=== PATIENT | female | born 1955 | race Two or more races ===

== ENCOUNTER 2017-09-13 13:38 | Inpatient (IN) | payer BC ==
[2017-09-13 14:54] LABS: ABS Basophils 0.1 10^3/ul (0-0.2); ABS Eosinophils 0.1 10^3/ul (0-0.6); ABS Lymphocytes 1.1 10^3/ul (1.0-4.8); ABS Monocytes 0.6 10^3/ul (0-0.8); ABS Neutrophils 6.5 10^3/ul (1.5-7.7); ABS Nucleated RBC 0 10^3/ul; Eosinophil % 1.1 % (0-6); Hematocrit 41 % (35-47); Hemoglobin 13.9 g/dl (12.0-16.0); Lymphocyte % 13.6 % (25-47); Mean Corpuscular HGB Conc 34 g/dl (31-36); Mean Corpuscular Hemoglobin 29 pg (27-31); Mean Corpuscular Volume 84 fL (80-97); Mean Platelet Volume 6.8 um3 (7.4-10.4); Nucleated Red Blood Cells % 0; Platelet Count 272 10^3/ul (150-450); Red Blood Count 4.88 10^6/ul (4.0-5.4); Red Cell Distribution Width 13 % (10.5-15); White Blood Count 8.5 10^3/ul (3.5-10.8)
[2017-09-13] MEDS ORDERED: NS 0.9% 1000 ML* 1,000 ML IV ONE (14:59)
[2017-09-13 15:26] LABS: EGFR Non-African American 61.5 (>60)
[2017-09-13] MEDS ORDERED: Potassium Chlor TAB* 20 MEQ TAB.ER PO ONE (15:28)
[2017-09-13] MEDS ORDERED: KCL 10 MEQ/50 ML IVPREMIX* 10 MEQ/50 ML BAG IV ONE (15:52)
--- NOTE | 2017-09-13 16:14 | RAD ---
Indication: Altered mental status. Comparison: No relevant prior exams available on the [facility] [place] comparison. Technique: Upright AP 1550 hours Report: Minimal bibasilar linear atelectasis likely reflecting suboptimal inspiration given domed appearance of the hemidiaphragms. No pulmonary infiltrate, focal pulmonary lesion, pleural effusion, or pneumothorax. The heart, pulmonary vasculature, and mediastinal contours are unremarkable.
[2017-09-13 16:32] LABS: INR 0.96 (0.77-1.02)
--- NOTE | 2017-09-13 16:46 | RAD ---
Indication: Confusion, altered mental status. CT of the brain was performed without IV contrast. Ventricular structures are midline. No midline shift is noted. The extra-axial spaces are unremarkable. There is no evidence of intracranial mass or hemorrhage. No other high or low density lesions are identified. Mastoid air cells and paranasal sinuses are unremarkable. IMPRESSION: No intracranial mass or hemorrhage is noted. Mastoid air cells and paranasal sinuses are unremarkable.
--- NOTE | 2017-09-13 17:43 | ED ---
Geno Dwyer Julia, scribed for Elisa Turner MD on 09/13/17 at 1446 . Substance Abuse/Use - HPI Summary HPI Summary: This patient is a 62 year old F presenting to [facility] accompanied by her from Dr. Vasu Roy office (psychiatrist in [place]) with altered mental status. Pt has been attempting withdrawal from Lorazepam and Narcotics for the past three days. Pt was referred to Dr. Vasu Huerta by her PCP Dr. Amy Quijano. Pt has been seen at the pain clinic at [facility]. She has been taking opioids and benzodiazepines for many years according to Dr. Roy chart from . states she was unstable and up most of last night hallucinating and talking to people who are not there. Pt is speaking Korean in the room. states that she speaks Slovenian well, but hasnt been speaking it while confused. Dr. Vasu Roy HPI from 09/01/17 reads: Ms. Schilling has been taking opioids and benzodiazepines for many years. These have been prescribed to her by various doctors for various ailments including Hodgkins lymphoma (dx in 2004), knee surgery (broken femur), and shingles. She has taken oxycodone/ acetaminophen as well as oxycodone in the past, as her tolerance for opioids has increased over the years. She is not currently taking oxycodone, and has not for the past two months. Instead she is taking Belbuca 900mg BID. HPI is limited due to level 5 caveat. - History Of Current Complaint Chief Complaint: EDDetoxRequest Stated Complaint: DETOX Time Seen by Provider: 09/13/17 14:09 Hx Obtained From: Family/Electronic Prepress System Operator - , Medical Records - Dr. Vasu Huerta Hx From Patient Unobtainable Due To: Altered Mental Status Onset/Duration of Drug/ETOH Abuse: Years - prescribed benzodiazepine and narcotics Ingestion History: Type/Name Of Drug - prescribed benzodiazepines and opioids Timing Of Abuse: Recent Cessation For A Period Of - three days Severity Initially: Moderate Severity Currently: Severe Character: Lethargic Aggravating Factor(s): Nothing Alleviating Factor(s): Nothing Associated Signs And Symptoms: Hallucinating, Altered Mental Status, Other: - speaking teller tongue Korean - Allergies/Home Medications Allergies/Adverse Reactions: Allergies Allergy/AdvReac Type Severity Reaction Status Date / Time Penicillins Allergy Severe Anaphylatic Verified 09/13/17 13:47 Shock levofloxacin [From Levaquin] Allergy Dizziness Verified 09/13/17 13:47 Home Medications: Home Medications Buprenorphine HCl [Belbuca] 900 mcg BUCCAL BID 09/13/17 [History Confirmed 09/13] Citalopram TAB* [CeleXA TAB*] 10 mg PO DAILY 09/13/17 [History Confirmed ] Gabapentin CAP(*) [Neurontin 400 mg CAP(*)] 800 mg PO TID 09/13/17 [History Confirmed 09/13/17] Hyoscyamine TAB* [Anaspaz 0.125 MG TAB*] 0.125 mg PO Q1HR PRN MDD 6 tabs [History Confirmed 09/13/17] Losartan TAB* [Cozaar TAB*] 100 mg PO DAILY 09/13/17 [History Confirmed 09/13/17 ] Multivitamins/Minerals TAB* [Theragran/minerals TAB*] 1 tab PO DAILY 09/13/17 [ History Confirmed 09/13/17] Naltrexone TAB* 50 mg PO DAILY 09/13/17 [History Confirmed 09/13/17] OLANzapine TAB* [Zyprexa 10 MG TAB*] 10 mg PO QPM 09/13/17 [History Confirmed ] traZODone TAB* [Desyrel TAB*] 100 - 300 mg PO BEDTIME PRN 09/13/17 [History Confirmed 09/13/17] PMH/Surg Hx/FS Hx/Imm Hx Endocrine/Hematology History: Reports: Hx Diabetes Cardiovascular History: Reports: Hx Hypercholesterolemia, Hx Hypertension Denies: Hx Pacemaker/ICD History: Denies: Hx Renal Disease Musculoskeletal History: Reports: Hx Back Problems - scoliosis, DDD, central canal stenosis, OA, Sensory History: Reports: Hx Contacts or Glasses Denies: Hx Hearing Aid Opthamlomology History: Reports: Hx Contacts or Glasses Neurological History: Reports: Hx Peripheral Neuropathy Psychiatric History: Reports: Hx Anxiety, Hx Depression Denies: Hx Panic Disorder - Cancer History Cancer Type, Location and Year: LYMPHOMA - NONHODGKIN'S Hx Chemotherapy: Yes Hx Radiation Therapy: No - Surgical History Surgery Procedure, Year, and Place: Lt FEMUR W/ ROSEY. Lt KNEE - REPLACEMENT Infectious Disease History: No Infectious Disease History: Denies: Traveled Outside the [place] in Last 30 Days - Family History Known Family History: Positive: Other - Etoh abuse Family History: FMHx is limited. Both parents as a result of trauma. - Social History Lives: With Family Alcohol Use: None Substance Use Type: Reports: Prescribed Smoking Status (MU): Never Smoked Tobacco Review of Systems Positive: Fatigue. Negative: Fever ENT: Negative Positive: Other Respiratory: Negative Gastrointestinal: Negative Positive: no symptoms reported Neurological: Other - altered mental status Positive: Other - hallucinating All Other Systems Reviewed And Are Negative: No - Comments Additional Review of Systems Comments: ROS is limited. Pt is level 5 caveat. Physical Exam - Summary Physical Exam Summary: Appearance: Ill-appearing, no apparent pain distress, Well-nourished, pt is only oriented to name, pt is speaking Korean sometimes and Slovenian sometimes in a soft voice. Pt speaks in nonsensical sentences. Skin: Warm, color reflects adequate perfusion Head: Normal Head/Face inspection, atraumatic Eyes: Conjunctiva clear, pupils are 2mm and reactive, EOMI ENT: dry mucous membranes, dry pharynx Neck: Supple, no nodes, no JVD. Respiratory: Lungs clear, Normal breath sounds, no respiratory distress Cardio: Regular rhythm, tachycardic rate, No murmur, pulses normal, brisk capillary refill Abdomen: soft, nontender, no masses Bowel sounds: present Musculoskeletal: Strength Intact/ ROM intact. No calf tenderness. No edema. Psychological: Normal Neuro: Alert and oriented x1, GCS 14, muscle tone normal, no focal deficit, moving all extremities well, sensation intact Triage Information Reviewed: Yes Vital Signs On Initial Exam: Initial Vitals Temp Pulse Resp BP Pulse Ox 98.4 F 124 18 159/66 100 09/13/17 13:44 09/13/17 13:44 09/13/17 13:44 09/13/17 13:44 09/13/17 13:44 Vital Signs Reviewed: Yes Diagnostics - Vital Signs Vital Signs Temp Pulse Resp BP Pulse Ox 09/13/17 13:44 98.4 F 124 18 159/66 100 - Laboratory Lab Results: Lab Results 09/13/17 09/13/17 09/13/17 Range/Units 14:45 14:45 15:34 WBC 8.5 (3.5-10.8) 10^3/ul RBC 4.88 (4.0-5.4) 10^6/ul Hgb 13.9 (12.0-16.0) g/dl Hct 41 (35-47) % MCV 84 (80-97) fL MCH 29 (27-31) pg MCHC 34 (31-36) g/dl RDW 13 (10.5-15) % Plt Count 272 (150-450) 10^3/ul MPV 6.8 L (7.4-10.4) um3 Neut % (Auto) 77.0 (38-83) % Lymph % (Auto) 13.6 L (25-47) % Angelina % (Auto) 7.4 H (0-7) % Eos % (Auto) 1.1 (0-6) % Baso % (Auto) 0.9 (0-2) % Absolute Neuts (auto) 6.5 (1.5-7.7) 10^3/ul Absolute Lymphs (auto) 1.1 (1.0-4.8) 10^3/ul Absolute Monos (auto) 0.6 (0-0.8) 10^3/ul Absolute Eos (auto) 0.1 (0-0.6) 10^3/ul Absolute Basos (auto) 0.1 (0-0.2) 10^3/ul Absolute Nucleated RBC 0 10^3/ul Nucleated RBC % 0 Sodium 134 L (139-145) mmol/L Potassium 3.2 L (3.5-5.0) mmol/L Chloride 94 L (101-111) mmol/L Carbon Dioxide 26 (22-32) mmol/L Anion Gap 14 H (2-11) mmol/L BUN 7 (6-24) mg/dL Creatinine 0.92 (0.51-0.95) mg/dL Est GFR ( Amer) 79.0 (>60) Est GFR (Non-Af Amer) 61.5 (>60) BUN/Creatinine Ratio 7.6 L (8-20) Glucose 237 H (70-100) mg/dL Lactic Acid 3.4 H* (0.5-2.0) mmol/L Calcium 10.2 (8.6-10.3) mg/dL Magnesium Total Bilirubin 0.70 (0.2-1.0) mg/dL AST 63 H (13-39) U/L ALT 52 (7-52) U/L Alkaline Phosphatase 47 (34-104) U/L Total Creatine Kinase 2187 H (10-223) U/L Troponin I (<0.04) ng/mL Total Protein 7.3 (6.4-8.9) g/dL Albumin 4.7 (3.2-5.2) g/dL Globulin 2.6 (2-4) g/dL Albumin/Globulin Ratio 1.8 (1-3) TSH 0.70 (0.34-5.60) mcIU/mL Salicylates < 2.50 (<30) mg/dL Acetaminophen < 15 mcg/mL Serum Alcohol < 10 (<10) mg/dL 09/13/17 Range/Units 15:34 WBC (3.5-10.8) 10^3/ul RBC (4.0-5.4) 10^6/ul Hgb (12.0-16.0) g/dl Hct (35-47) % MCV (80-97) fL MCH (27-31) pg MCHC (31-36) g/dl RDW (10.5-15) % Plt Count (150-450) 10^3/ul MPV (7.4-10.4) um3 Neut % (Auto) (38-83) % Lymph % (Auto) (25-47) % Angelina % (Auto) (0-7) % Eos % (Auto) (0-6) % Baso % (Auto) (0-2) % Absolute Neuts (auto) (1.5-7.7) 10^3/ul Absolute Lymphs (auto) (1.0-4.8) 10^3/ul Absolute Monos (auto) (0-0.8) 10^3/ul Absolute Eos (auto) (0-0.6) 10^3/ul Absolute Basos (auto) (0-0.2) 10^3/ul Absolute Nucleated RBC 10^3/ul Nucleated RBC % Sodium (139-145) mmol/L Potassium (3.5-5.0) mmol/L Chloride (101-111) mmol/L Carbon Dioxide (22-32) mmol/L Anion Gap (2-11) mmol/L BUN (6-24) mg/dL Creatinine (0.51-0.95) mg/dL Est GFR ( Amer) (>60) Est GFR (Non-Af Amer) (>60) BUN/Creatinine Ratio (8-20) Glucose (70-100) mg/dL Lactic Acid (0.5-2.0) mmol/L Calcium (8.6-10.3) mg/dL Magnesium Pending Total Bilirubin (0.2-1.0) mg/dL AST (13-39) U/L ALT (7-52) U/L Alkaline Phosphatase (34-104) U/L Total Creatine Kinase (10-223) U/L Troponin I 0.01 (<0.04) ng/mL Total Protein (6.4-8.9) g/dL Albumin (3.2-5.2) g/dL Globulin (2-4) g/dL Albumin/Globulin Ratio (1-3) TSH (0.34-5.60) mcIU/mL Salicylates (<30) mg/dL Acetaminophen mcg/mL Serum Alcohol (<10) mg/dL Result Diagrams: 09/13/17 14:45 09/13/17 14:45 Lab Statement: Any lab studies that have been ordered have been reviewed, and results considered in the medical decision making process. - EKG 1448 Cardiac Rate: NL EKG Rhythm: Sinus Rhythm - at [address] Segment: Non-Specific Ectopy: None EKG Interpretation: nml AVIVCT, nml QTc, nml axis, not STEMI EKG Comparison: Other - no prior EKG Re-Evaluation - Re-Evaluation First Eval Re-Evaluation Time: 16:30 Change: Improved - Pt is more alert. Returned from CT. Knows her name, where she is, what year and what month it is. Course/Dx - Course Course Of Treatment: aware of lactic acid 3.4 at 1600. IV fluids infusing wide open to treat rhabdomyolysis. Hypokalemia being treated with oral and IV replacement. Pt is admitted for further evaluation and treatment. - Diagnoses Differential Diagnosis/HQI/PQRI: Positive: Alcohol Withdrawal, Delirium Tremens , Drug Abuse, Drug Withdrawal, Metabolic Disorder Provider Diagnoses: Altered mental status, Rhabdomyolysis, Lactic acidosis - Physician Notifications Discussed Care Of Patient With: Jade Bartholomew Time Discussed With Above Provider: 18:30 Instructed by Provider To: Admit As Inpatient - Critical Care Time Critical Care Time: 30-74 min - 30 minutes Discharge - Sign-Out/Discharge Documenting (check all that apply): Discharge/Admit/Transfer - admit - Discharge Plan Condition: Guarded Disposition: ADMITTED TO [facility] - Billing Disposition and Condition Condition: GUARDED Disposition: [facility] The documentation as recorded by the Geno newman Julia accurately reflects the service I personally performed and the decisions made by Johnny montgomery Barbara J, MD.
[2017-09-13 18:04] LABS: Urine Appearance Clear; Urine Blood 2+ (Negative); Urine Color Straw; Urine Ketones Negative (Negative); Urine Protein 1+(30 mg/dL) (Negative); Urine Specific Gravity 1.004 (1.010-1.030); Urine Urobilinogen Negative (Negative)
[2017-09-13] MEDS ORDERED: Acetaminophen TAB* 325 MG PO PRN (18:38)
[2017-09-13] MEDS ORDERED: Hyoscyamine TAB* 0.125 MG PO PRN (18:42)
[2017-09-13] MEDS ORDERED: traZODone TAB* 100 MG PO PRN (18:42)
[2017-09-13] MEDS ORDERED: Dextrose 50% Syringe 50 ML* 25 GM/50 ML SYRINGE IV PUSH PRN (18:45)
[2017-09-13] MEDS ORDERED: Magnesium Sulfate 2 GM IV* 2 GM/50 ML BAG IVPB ONE (18:46)
[2017-09-13] MEDS ORDERED: Potassium Chloride LIQUID* 20 MEQ PACKET PO ONE (18:47)
[2017-09-13] MEDS: Losartan TAB* 25 MG PO SCH (20:55)
[2017-09-13] MEDS: Gabapentin CAP(*) 400 MG PO SCH (20:56)
[2017-09-13] MEDS: Docusate CAP* 100 MG PO SCH (20:56)
[2017-09-13] MEDS: Insulin LISPRO* 1 UNITS UNIT SUBCUT SCH (21:00)
[2017-09-13] MEDS ORDERED: LORazepam TAB(*) 1 MG PO SCH (21:00)
[2017-09-13] MEDS ORDERED: cloNIDine TAB* 0.1 MG PO SCH (21:00)
[2017-09-13] MEDS: Heparin VIAL(*) 5000 UNITS/ML VIAL (FIVE THOUSAND) SUBCUT SCH (21:02)
--- NOTE | 2017-09-13 21:07 | HP ---
CC: Dr. Amy Quijano; Dr. Kat; Dr. Jamison, Pain Management; Dr. Vasu Huerta, psychiatrist* HISTORY AND PHYSICAL: DATE OF ADMISSION: 09/13/17 PRIMARY CARE PROVIDER: Dr. Amy Quijano. CHIEF COMPLAINT: Altered mental status. HISTORY OF PRESENT ILLNESS: Mrs. Schilling is a 62-year-old female with history of spinal stenosis and chronic benzodiazepines and narcotics, who is on a benzodiazepine taper as per Dr. Vasu Huerta. Apparently, she took her narcotics 3 days ago and she is on tapering dose of Ativan. Today, she was confused and speaking "nonsensically" in the emergency department. She was noted to have mild rhabdomyolysis. By the time I saw the patient, she is actually alert and oriented. She still has problems with verbal communication mostly likely due to what appears to be dehydration and dry mouth. Sometimes, her speech is somewhat and her understanding of everything is somewhat tangential. Patient is going to be admitted with a diagnosis of rhabdomyolysis and benzodiazepine withdrawal. PAST MEDICAL HISTORY: 1. Spinal stenosis. 2. History of gastroesophageal reflux disease. 3. Hypertension. 4. Asthma. 5. Anxiety. 6. History of non-Hodgkin's lymphoma, status post chemo and radiation. 7. History of chronic pain and history of addiction. 8. Status post left knee replacement and left femur ORIF. 9. Status post cholecystectomy. HOME MEDICATIONS: Include: 1. Multivitamin 1 tablet daily. 2. Metformin 1000 mg b.i.d. 3. Losartan 100 mg daily. 4. Gabapentin 800 mg 3 times a day. 5. Belbuca 900 mcg buccal b.i.d. Patient took the last dose 3 days ago. 6. Crestor 10 mg daily. 7. Celexa 10 mg daily. 8. Ativan 2 mg b.i.d. p.r.n., last dose 24 hours ago. 9. Naltrexone 50 mg daily. 10. Anaspaz 0.125 mg p.o. every 1 hour p.r.n. 11. Zyprexa 10 mg daily. 12. Trazodone 100 to 300 mg at bedtime p.r.n. ALLERGIES: PENICILLINS and LEVOFLOXACIN; PENICILLINS cause anaphylactic shock and LEVOFLOXACIN causes dizziness. FAMILY HISTORY: Grossly unknown. Patient's both parents of trauma. SOCIAL HISTORY: Patient denies any tobacco, alcohol, or drug use. She lives with her , who is her surrogate. REVIEW OF SYSTEMS: Please see history of present illness. Patient stated that she had been not feeling like eating or drinking for the past 48 hours. She apparently was confused during her initial presentation in the emergency department. She denies any fevers. She denies any seizure activity. All the remaining systems were reviewed with the patient, who is rather a poor historian and were otherwise negative. PHYSICAL EXAMINATION GENERAL: The patient is a very pleasant 62-year-old female, who is in no acute distress. She speaks with an accent originally she is from [facility] [place] [facility] from which country she immigrated to [facility] approximately 40 years ago as she stated. Patient is in no acute distress. Occasionally tangential and poor historian, but otherwise oriented x3. VITAL SIGNS: Blood pressure of 187/84, heart rate of 85 and regular, respiratory rate 18, oxygen saturation 100% on room air, temperature 98.4. HEENT: Head: Atraumatic and normocephalic. Eyes: Pupils are equal, reactive to light and accommodation. Oropharynx clear. Mucosa dry. NECK: Supple. No JVD. No bruits bilaterally. RESPIRATORY: Clear to auscultation bilaterally. CARDIOVASCULAR: Regular rate and rhythm, no murmur. ABDOMEN: Soft, nontender. Bowel sounds are present in all 4 quadrants. EXTREMITIES: There is no edema. Pulses +2 bilaterally. No clubbing or cyanosis. NEUROLOGIC: Speech is clear. Cranial nerves II through XII grossly intact. Motor strength is 5/5 bilaterally. Patient has fine tremor in bilateral upper extremities. PSYCHIATRIC: Somewhat tangential speech. Appears mildly anxious and no evidence of depression. DIAGNOSTIC STUDIES/LABORATORY DATA: Showed sodium of 134, potassium 3.2, chloride 94, carbon dioxide 26, BUN is 7, creatinine 0.92. Liver function tests , slight elevation in the AST of 63, otherwise unremarkable. Magnesium was 1.6. Glucose of 237. Lactic acid of 3.4. TSH of 0.7. CBC: White blood cell count of 8.5, hemoglobin of 13.9, hematocrit of 41, and platelets 172. ABG showed pH of 7.51, pCO2 of 32, pO2 of 81, bicarb of 27. Ammonia level was 34. Urinalysis showed blood +2, absent bacteria, white blood cells. Urine tox screen negative. Portable chest x-ray, impression: "Minimal bibasilar linear atelectasis likely reflecting suboptimal respiration given the domed appearance of hemidiaphragms. No pulmonary infiltrate, focal pulmonary lesions, pleural effusion, or pneumothorax. The heart, pulmonary vasculature and mediastinal contours are unremarkable." Brain CT, impression: "No intracranial mass or hemorrhage is noted." Patient's EKG showed sinus rhythm with a heart rate of 85 beats per minute with likely J-point elevation in his V1 to V3. There was no another EKG in the system to compare to. ASSESSMENT AND PLAN: 1. Patient has mild rhabdomyolysis. Likely due to withdrawal, poor appetite and dehydration. Seizure is also in differential, although patient does not recall to have a seizure and that was not reported by patient's . At this point, patient is going to be placed on seizure precautions since she is going to be withdrawing from narcotics and Ativan during her hospital stay. 2. For benzodiazepine withdrawal, I am going to ask Psychiatry to see the patient in consultation. For the time being, I will place the patient back on Ativan 3 times a day at a smaller dose at 1 mg. 3. In regards to patient's history of narcotics dependence, the patient's buprenorphine is going to be held. I will place the patient on Tylenol and ibuprofen on p.r.n. basis for pain management. 4. Patient's uncontrolled hypertension likely due to benzodiazepine withdrawal. Patient is going to be placed on clonidine 3 times a day. Her losartan is also going to be restarted. 5. Her diabetes type 2 is going to be treated with insulin sliding scale. For the time being, metformin is going to be held. 6. Patient's hypokalemia and hypomagnesemia is going to be replaced orally and IV. We will check her twice in the morning. 7. Patient's code status is full and her surrogate is her . TIME SPENT: Approximately 65 minutes was spent on admission of this patient, more than half that time was spent [id number] with the patient during the interview and physical exam. [id number]/[facility] #: [id number] [facility]ITAL[facility]
--- NOTE | 2017-09-14 00:23 | PN ---
Progress Note - Progress Note Date of Service: 09/14/17 Note: Nursing called reporting lethargy. Upon arrival, Mrs Schilling would not open her eyes to voice, but with a rather mild sternal pressure she would slowly open her eyes and answer questions appropriately. She moved all 4 extremities equally , had clear speech, PERRLA/EOMI. She returned quickly to sleep once pressure was relieved. She has intact crude touch globally and CT brain performed earlier was negative. MAR does not indicate and new administration of sedating meds. Nursing advised to do neurochecks Q1H x4, then Q2 and call for any changes.
[2017-09-14] MEDS ORDERED: NS 0.9% 1000 ML* 1,000 ML IV ONE (00:55)
[2017-09-14] MEDS: NS 0.9% 1000 ML* 1,000 ML IV SCH ×3 (00:55→19:33)
--- NOTE | 2017-09-14 01:08 | PN ---
Progress Note - Progress Note Date of Service: 09/14/17 Note: Nursing calls reporting progressive lethargy & hypotension w/ systolic in the 70s with IVFs running wide open. Upon arrival, Mrs Schilling is significantly less responsive, now only moaning to moderate sternal rub. saO2 is >90. Ordered 1L NS bolus, check CBC/CMP/lactic/ammonia/ABG, recheck CT brain WO, & ECG. Of note , glucose at time of last evaluation was 127.
[2017-09-14 03:36] LABS: ABS Basophils 0 10^3/ul (0-0.2); ABS Eosinophils 0.3 10^3/ul (0-0.6); ABS Lymphocytes 2.5 10^3/ul (1.0-4.8); ABS Monocytes 0.9 10^3/ul (0-0.8); ABS Neutrophils 3.2 10^3/ul (1.5-7.7); ABS Nucleated RBC 0 10^3/ul; Hematocrit 38 % (35-47); Hemoglobin 12.2 g/dl (12.0-16.0); Lymphocyte % 36.3 % (25-47); Mean Corpuscular HGB Conc 32 g/dl (31-36); Mean Corpuscular Hemoglobin 29 pg (27-31); Mean Corpuscular Volume 88 fL (80-97); Mean Platelet Volume 7.2 um3 (7.4-10.4); Nucleated Red Blood Cells % 0.2; Platelet Count 167 10^3/ul (150-450); Red Blood Count 4.28 10^6/ul (4.0-5.4); Red Cell Distribution Width 13 % (10.5-15); White Blood Count 6.9 10^3/ul (3.5-10.8)
[2017-09-14] MEDS: Heparin VIAL(*) 5000 UNITS/ML VIAL (FIVE THOUSAND) SUBCUT SCH ×3 (05:23→20:57)
--- NOTE | 2017-09-14 05:43 | PN ---
Progress Note - Progress Note Date of Service: 09/14/17 Note: Re-evaluated patient. Blood pressure improved after bolus. Remains hypo- responsive. Will open eyes to sternal rub, does not answer questions, and then throws her head back onto her pillow and will not respond. Labs are unrevealing , ammonia still pending. CT brain WO negative. ECG benign. Continue to monitor closely. Prior psychiatric history?
[2017-09-14 06:12] LABS: ABS Eosinophils 0.5 10^3/ul (0-0.6); ABS Lymphocytes 2.7 10^3/ul (1.0-4.8); ABS Monocytes 0.9 10^3/ul (0-0.8); ABS Neutrophils 3.9 10^3/ul (1.5-7.7); Hematocrit 39 % (35-47); Hemoglobin 12.5 g/dl (12.0-16.0); Mean Corpuscular HGB Conc 32 g/dl (31-36); Mean Corpuscular Hemoglobin 28 pg (27-31); Mean Corpuscular Volume 89 fL (80-97); Mean Platelet Volume 6.5 um3 (7.4-10.4); Platelet Count 211 10^3/ul (150-450); Red Cell Distribution Width 13 % (10.5-15)
[2017-09-14 06:13] LABS: ABS Basophils 0.1 10^3/ul (0-0.2); ABS Nucleated RBC 0 10^3/ul; Eosinophil % 5.7 % (0-6); Lymphocyte % 33.8 % (25-47); Nucleated Red Blood Cells % 0.1
[2017-09-14 06:20] LABS: EGFR Non-African American 66.4 (>60)
[2017-09-14] MEDS: LORazepam TAB(*) 1 MG PO SCH ×3 (07:53→20:53)
[2017-09-14] MEDS: Insulin LISPRO* 1 UNITS UNIT SUBCUT SCH ×4 (08:00→20:47)
--- NOTE | 2017-09-14 08:09 | RAD ---
INDICATION: Altered mental status loss of consciousness. COMPARISON: Comparison is made with a prior CT of the brain from September 13, 2017. TECHNIQUE: Contiguous axial sections of the brain were obtained from the skull base to the vertex without contrast. FINDINGS: The ventricles, cisterns and sulci are enlarged consistent with diffuse atrophy. No significant focal abnormality or mass effect is seen. There is no evidence for hemorrhage. No significant focal osseous abnormality is seen. The visualized portion of the paranasal sinuses and mastoid air cells appear clear. IMPRESSION: NO EVIDENCE FOR GROSS ACUTE INFARCT, MASS EFFECT OR HEMORRHAGE.
[2017-09-14] MEDS: Losartan TAB* 25 MG PO SCH (09:41)
[2017-09-14] MEDS: Gabapentin CAP(*) 400 MG PO SCH ×3 (09:42→20:53)
[2017-09-14] MEDS: Docusate CAP* 100 MG PO SCH ×2 (09:42→20:53)
[2017-09-14] MEDS: Citalopram TAB* 10 MG PO SCH (09:42)
[2017-09-14] MEDS: OLANzapine TAB* 10 MG PO SCH (17:39)
--- NOTE | 2017-09-14 18:11 | PN ---
Hospitalist Progress Note Date of Service: 09/14/17 Pt seen and examined. Meds and labs reviewed. ROS: Denied GARRISON/dizziness, F/C, N/V, CP, SOB, increased cough, sputum production , abd pain, diarrhea, constipation, dysuria, myalgias, arthralgias, throat pain , and new skin lesions. The rest of the 14 point ROS are unremarkable. PHYSICAL EXAM: GEN APPEARANCE: Awake, not in acute distress HEENT: NC/AT, PERRLA, moist oral mucosa, (-) throat erythema NECK: Soft, supple, (-) cervical LAD, (-)JVD HEART: S1S2 WNL, RRR, No MRG CHEST: CTA, BL, GAE, No W/R/R ABD: Soft, ND/NT, NABS 4x Q EXT: No C/C/E SKIN: Warm to touch PSYCH: No active psychosis, hallucinations, depression, SI/HI Assess/Plan/Problems-Billing Assessment: - Patient Problems (1) Benzodiazepine abuse Current Visit: Yes Status: Acute Code(s): F13.10 - SEDATIVE, HYPNOTIC OR ANXIOLYTIC ABUSE, UNCOMPLICATED SNOMED Code(s): 198086172 Comment: --Continue current lowered BZD dose since admission --Continue watchful waiting (2) Rhabdomyolysis Current Visit: Yes Status: Acute Code(s): M62.82 - RHABDOMYOLYSIS SNOMED Code(s): 390230970 Comment: --Mild --Continue IVFs --Repeat CPK in AM Status and Disposition: DVT Proph: Continue Heparin SQ
[2017-09-14] MEDS: Ibuprofen TAB* 400 MG PO PRN (19:30)
[2017-09-14] MEDS: Albuterol 2.5 MG/3 ML NEB.SOL* (0.083%) INH PRN (19:58)
[2017-09-15] MEDS: Albuterol 2.5 MG/3 ML NEB.SOL* (0.083%) INH PRN (03:34)
[2017-09-15] MEDS: Heparin VIAL(*) 5000 UNITS/ML VIAL (FIVE THOUSAND) SUBCUT SCH ×3 (05:58→22:10)
[2017-09-15] MEDS: LORazepam TAB(*) 1 MG PO SCH ×3 (07:47→20:58)
[2017-09-15] MEDS: Gabapentin CAP(*) 400 MG PO SCH ×3 (07:49→20:58)
[2017-09-15] MEDS: Losartan TAB* 25 MG PO SCH (07:52)
[2017-09-15] MEDS: Citalopram TAB* 10 MG PO SCH (07:52)
[2017-09-15] MEDS: Docusate CAP* 100 MG PO SCH ×2 (07:52→20:58)
[2017-09-15] MEDS: Insulin LISPRO* 1 UNITS UNIT SUBCUT SCH ×4 (07:57→20:59)
[2017-09-15 08:17] LABS: ABS Basophils 0 10^3/ul (0-0.2); ABS Eosinophils 0.3 10^3/ul (0-0.6); ABS Lymphocytes 1.8 10^3/ul (1.0-4.8); ABS Monocytes 0.5 10^3/ul (0-0.8); ABS Neutrophils 2.5 10^3/ul (1.5-7.7); ABS Nucleated RBC 0 10^3/ul; Eosinophil % 5.3 % (0-6); Hematocrit 34 % (35-47); Hemoglobin 11.5 g/dl (12.0-16.0); Lymphocyte % 35.5 % (25-47); Mean Corpuscular HGB Conc 34 g/dl (31-36); Mean Corpuscular Hemoglobin 29 pg (27-31); Mean Corpuscular Volume 86 fL (80-97); Mean Platelet Volume 6.9 um3 (7.4-10.4); Nucleated Red Blood Cells % 0; Platelet Count 204 10^3/ul (150-450); Red Blood Count 3.93 10^6/ul (4.0-5.4); Red Cell Distribution Width 13 % (10.5-15); White Blood Count 5.2 10^3/ul (3.5-10.8)
[2017-09-15 08:33] LABS: EGFR Non-African American 68.3 (>60)
[2017-09-15] MEDS ORDERED: Losartan TAB* 25 MG PO SCH (11:51)
--- NOTE | 2017-09-15 12:58 | PN ---
Subjective Date of Service: 09/15/17 Interval History: No new c/o. Objective Active Medications: Acetaminophen (Tylenol Tab*) 650 mg PO Q4H PRN PRN Reason: FEVER/PAIN Last Admin: 09/15/17 00:31 Dose: 650 mg Albuterol (Ventolin 2.5 Mg/3 Ml Neb.Merari*) 2.5 mg INH Q2H PRN PRN Reason: SOB/WHEEZING Last Admin: 09/15/17 03:34 Dose: 2.5 mg Citalopram Hydrobromide (Celexa Tab*) 10 mg PO DAILY [facility] Last Admin: 09/15/17 07:52 Dose: 10 mg Dextrose (D50w Syringe 50 Ml*) 12.5 gm IV PUSH .FOR FS < 60 - SS PRN PRN Reason: FS < 60 Docusate Sodium (Colace Cap*) 100 mg PO BID [facility] Last Admin: 09/15/17 07:52 Dose: 100 mg Gabapentin (Neurontin Cap(*)) 800 mg PO TID [facility] Last Admin: 09/15/17 07:49 Dose: 800 mg Heparin Sodium (Porcine) (Heparin Vial(*)) 5,000 units SUBCUT Q8HR [facility] Last Admin: 09/15/17 05:58 Dose: 5,000 units Hyoscyamine (Anaspaz Tab*) 0.125 mg PO Q1H PRN PRN Reason: PAIN Ibuprofen (Motrin Tab*) 400 mg PO Q6H PRN PRN Reason: PAIN Last Admin: 09/14/17 19:30 Dose: 400 mg Insulin Human Lispro (Humalog*) 0 units SUBCUT ACHS [facility] PRN Reason: Protocol Last Admin: 09/15/17 12:24 Dose: 1 unit Lorazepam (Ativan Tab(*)) 1 mg PO 0900,1400,2100 [facility] Last Admin: 09/15/17 07:47 Dose: 1 mg Losartan Potassium (Cozaar Tab*) 50 mg PO DAILY [facility] Olanzapine (Zyprexa Tab*) 10 mg PO QPM [facility] Last Admin: 09/14/17 17:39 Dose: 10 mg Trazodone HCl (Desyrel Tab*) 100 mg PO BEDTIME PRN PRN Reason: SLEEP Last Admin: 09/15/17 01:29 Dose: 100 mg Vital Signs - 8 hr 09/15/17 09/15/1718 07:47 07:49 07:51 Temperature Pulse Rate Respiratory 16 16 Rate Blood Pressure 148/72 (mmHg) O2 Sat by Pulse Oximetry 09/15/17 09/15/17 09/15/17 07:59 08:00 10:43 Temperature 97.5 F Pulse Rate 47 64 Respiratory 17 16 16 Rate Blood Pressure (mmHg) O2 Sat by Pulse 100 Oximetry Oxygen Devices in Use Now: None Appearance: Alert, in fair spirits. Looks comfortable. Eyes: No Scleral Icterus Neurological: Alert and Oriented x 3, NL Sensation, - - Walks well with walker and CG. No tremor. Result Diagrams: 09/15/17 07:53 09/15/17 07:53 Additional Lab and Data: Lab Results 09/13/17 09/13/17 09/13/17 Range/Units 14:45 14:45 15:34 WBC 8.5 (3.5-10.8) 10^3/ul RBC 4.88 (4.0-5.4) 10^6/ul Hgb 13.9 (12.0-16.0) g/dl Hct 41 (35-47) % MCV 84 (80-97) fL MCH 29 (27-31) pg MCHC 34 (31-36) g/dl RDW 13 (10.5-15) % Plt Count 272 (150-450) 10^3/ul MPV 6.8 L (7.4-10.4) um3 Neut % (Auto) 77.0 (38-83) % Lymph % (Auto) 13.6 L (25-47) % Crockett % (Auto) 7.4 H (0-7) % Eos % (Auto) 1.1 (0-6) % Baso % (Auto) 0.9 (0-2) % Absolute Neuts (auto) 6.5 (1.5-7.7) 10^3/ul Absolute Lymphs (auto) 1.1 (1.0-4.8) 10^3/ul Absolute Monos (auto) 0.6 (0-0.8) 10^3/ul Absolute Eos (auto) 0.1 (0-0.6) 10^3/ul Absolute Basos (auto) 0.1 (0-0.2) 10^3/ul Absolute Nucleated RBC 0 10^3/ul Nucleated RBC % 0 Sodium 134 L (139-145) mmol/L Potassium 3.2 L (3.5-5.0) mmol/L Chloride 94 L (101-111) mmol/L Carbon Dioxide 26 (22-32) mmol/L Anion Gap 14 H (2-11) mmol/L BUN 7 (6-24) mg/dL Creatinine 0.92 (0.51-0.95) mg/dL Est GFR ( Amer) 79.0 (>60) Est GFR (Non-Af Amer) 61.5 (>60) BUN/Creatinine Ratio 7.6 L (8-20) Glucose 237 H (70-100) mg/dL Lactic Acid 3.4 H* (0.5-2.0) mmol/L Calcium 10.2 (8.6-10.3) mg/dL Magnesium Total Bilirubin 0.70 (0.2-1.0) mg/dL AST 63 H (13-39) U/L ALT 52 (7-52) U/L Alkaline Phosphatase 47 (34-104) U/L Total Creatine Kinase 2187 H (10-223) U/L Troponin I (<0.04) ng/mL Total Protein 7.3 (6.4-8.9) g/dL Albumin 4.7 (3.2-5.2) g/dL Globulin 2.6 (2-4) g/dL Albumin/Globulin Ratio 1.8 (1-3) TSH 0.70 (0.34-5.60) mcIU/mL Salicylates < 2.50 (<30) mg/dL Acetaminophen < 15 mcg/mL Serum Alcohol < 10 (<10) mg/dL 09/13/17 Range/Units 15:34 WBC (3.5-10.8) 10^3/ul RBC (4.0-5.4) 10^6/ul Hgb (12.0-16.0) g/dl Hct (35-47) % MCV (80-97) fL MCH (27-31) pg MCHC (31-36) g/dl RDW (10.5-15) % Plt Count (150-450) 10^3/ul MPV (7.4-10.4) um3 Neut % (Auto) (38-83) % Lymph % (Auto) (25-47) % Crockett % (Auto) (0-7) % Eos % (Auto) (0-6) % Baso % (Auto) (0-2) % Absolute Neuts (auto) (1.5-7.7) 10^3/ul Absolute Lymphs (auto) (1.0-4.8) 10^3/ul Absolute Monos (auto) (0-0.8) 10^3/ul Absolute Eos (auto) (0-0.6) 10^3/ul Absolute Basos (auto) (0-0.2) 10^3/ul Absolute Nucleated RBC 10^3/ul Nucleated RBC % Sodium (139-145) mmol/L Potassium (3.5-5.0) mmol/L Chloride (101-111) mmol/L Carbon Dioxide (22-32) mmol/L Anion Gap (2-11) mmol/L BUN (6-24) mg/dL Creatinine (0.51-0.95) mg/dL Est GFR ( Amer) (>60) Est GFR (Non-Af Amer) (>60) BUN/Creatinine Ratio (8-20) Glucose (70-100) mg/dL Lactic Acid (0.5-2.0) mmol/L Calcium (8.6-10.3) mg/dL Magnesium Pending Total Bilirubin (0.2-1.0) mg/dL AST (13-39) U/L ALT (7-52) U/L Alkaline Phosphatase (34-104) U/L Total Creatine Kinase (10-223) U/L Troponin I 0.01 (<0.04) ng/mL Total Protein (6.4-8.9) g/dL Albumin (3.2-5.2) g/dL Globulin (2-4) g/dL Albumin/Globulin Ratio (1-3) TSH (0.34-5.60) mcIU/mL Salicylates (<30) mg/dL Acetaminophen mcg/mL Serum Alcohol (<10) mg/dL Assess/Plan/Problems-Billing Assessment: - Patient Problems (1) Rhabdomyolysis Current Visit: Yes Status: Acute Code(s): M62.82 - RHABDOMYOLYSIS SNOMED Code(s): 638924696 Comment: Resolved. (2) Benzodiazepine abuse Current Visit: Yes Status: Acute Code(s): F13.10 - SEDATIVE, HYPNOTIC OR ANXIOLYTIC ABUSE, UNCOMPLICATED SNOMED Code(s): 948715959 Comment: --Continue current lowered BZD dose since admission Needs careful fup as outpt. (3) Diabetes Current Visit: Yes Status: Acute Code(s): E11.9 - TYPE 2 DIABETES MELLITUS WITHOUT COMPLICATIONS SNOMED Code(s): 23368885 Comment: Resume metformin on discharge. Status and Disposition: DVT Proph: Continue Heparin SQ
[2017-09-15] MEDS: Ibuprofen TAB* 400 MG PO PRN (15:55)
[2017-09-15] MEDS: OLANzapine TAB* 10 MG PO SCH (16:52)
[2017-09-16] MEDS: Heparin VIAL(*) 5000 UNITS/ML VIAL (FIVE THOUSAND) SUBCUT SCH (06:04)
[2017-09-16] MEDS: Insulin LISPRO* 1 UNITS UNIT SUBCUT SCH ×2 (08:03→12:50)
[2017-09-16] MEDS: Docusate CAP* 100 MG PO SCH (08:04)
[2017-09-16] MEDS: Gabapentin CAP(*) 400 MG PO SCH ×2 (08:04→12:51)
[2017-09-16] MEDS: LORazepam TAB(*) 1 MG PO SCH ×2 (08:04→12:51)
[2017-09-16] MEDS: Citalopram TAB* 10 MG PO SCH (08:09)
[2017-09-16] MEDS ORDERED: Losartan TAB* 25 MG PO SCH (09:00)
[2017-09-16] MEDS ORDERED: amLODIPine TAB* 5 MG PO SCH (09:00)
[2017-09-16 10:49] VITALS: BP 160/88
--- NOTE | 2017-09-16 12:36 | PN ---
Progress Note - Progress Note Date of Service: 09/16/17 Note: Time spent on discharge 45 minutes.
--- NOTE | 2017-09-16 16:07 | DS ---
CC: Dr. Amy Quijano* DISCHARGE SUMMARY: DATE OF ADMISSION: 09/13/17 DATE OF DISCHARGE: 09/16/17 HOSPITAL COURSE: This 62-year-old woman was admitted with altered mental status. She had been on narcotic drug as well as large amount of lorazepam. She is seeing Dr. Huerta who is helping her taper off her benzodiazepine. She was quite altered in the emergency room and had mild rhabdomyolysis. She was admitted and given IV fluids and put on the appropriate dose of benzodiazepine for this time. At the time of discharge, her rhabdomyolysis had resolved. She could walk quite well with the walker. She was completely clear and lucid. Her came, they are really aware of the situation very well. She has adequate lorazepam 1 mg tablets at home. They will follow up with Dr. Huerta to continue on the tapering schedule. I did adjust her blood pressure medication. Instead of losartan 100 mg once day, she will take 50 mg twice a day and in addition, she will take amlodipine 5 mg every day. FINAL DIAGNOSES: 1. Mild rhabdomyolysis. 2. Benzodiazepine withdrawal program. 3. Hypertension. 4. Asthma. DISCHARGE MEDICATIONS: 1. Amlodipine 5 mg daily. 2. Lorazepam 1 mg t.i.d. 3. Losartan 50 mg b.i.d. 4. Trazodone 100 mg h.s. 5. Metformin 1000 mg b.i.d. 6. Rosuvastatin 10 mg daily. 7. Multivitamin with minerals 1 daily. 8. Gabapentin 800 mg t.i.d. 9. Citalopram 10 mg daily. 10. Hyoscyamine 0.125 mg every hour p.r.n. 11. Olanzapine 10 mg h.s. [id number]/[facility] #: [id number] [facility]
== END 2017-09-16 13:45 | disposition home or self-care (01) | DRG 351 ==
LOC: ED 13:38 → MED 18:38
PROVIDERS: ADMIT Internal Medicine; ATTEND Internal Medicine
DX: M62.82 Rhabdomyolysis (principal); F13.239 Sedative, hypnotic or anxiolytic dependence with withdrawal, unspecified; C85.90 Non-Hodgkin lymphoma, unspecified, unspecified site; E87.2 Acidosis; F11.20 Opioid dependence, uncomplicated; M41.9 Scoliosis, unspecified; M19.90 Unspecified osteoarthritis, unspecified site; E11.42 Type 2 diabetes mellitus with diabetic polyneuropathy; F41.9 Anxiety disorder, unspecified; F32.9 Major depressive disorder, single episode, unspecified; Z96.652 Presence of left artificial knee joint; M48.00 Spinal stenosis, site unspecified; J45.909 Unspecified asthma, uncomplicated; G89.29 Other chronic pain; K21.9 Gastro-esophageal reflux disease without esophagitis; I10 Essential (primary) hypertension; E87.6 Hypokalemia; E83.42 Hypomagnesemia; I95.9 Hypotension, unspecified; Z90.49 Acquired absence of other specified parts of digestive tract; Z88.1 Allergy status to other antibiotic agents; Z88.0 Allergy status to penicillin; Z79.84 Long term (current) use of oral hypoglycemic drugs
CPT/HCPCS: 36415; 36600; 70450; 71045; 80048; 80053; 80076; 80307; 80320; 80329; 81003; 81015; 82140; 82550; 82803; 83605; 83735; 84443; 84484; 85025; 85610; 86703; 86706; 86803; 87340; 93005; 94640; 99284; A9270-GY; G0480; J1644; J3475; J3480

== ENCOUNTER 2018-11-11 12:35 | Observation (INO) | payer MEDICARE ==
--- NOTE | 2018-11-11 14:49 | ED ---
Neurological HPI - HPI Summary HPI Summary: A 63 y/o female presents to [facility] with a chief complaint of low sodium today . Per triage note, "Pt had sodium 118 this AM, states she is weak and dizzy." At triage the patient rated her chronic back pain as a 7/10 in [address] She saw Dr[address] Mason this morning and had blood work done. She was then referred to the ED for her low sodium. The patient also c/o heart burn, anxiety , feeling dehydrated, spinning dizziness without falling, and notes that her legs shake at night. She denies any abdominal pain. She also has chronic pain in both legs, her back and neck. She goes to a pain clinic for back pain. She has been taking 25mg Hydrochlorothiazide, but stopped on 11/09/[address] Mason. She also takes Lorazepam. She denies any cardiac history. She has a Hx of HTN, chronic pain and spasms. SHx of ovarian cyst removal, cholecystectomy, right breast tumor removal, and knee surgery. Vital signs while in room: HR 75 bpm, BP 137/79, O2 sat 99% - History of Current Complaint Chief Complaint: EDWeakness Stated Complaint: LOW SODIUM PER PT AND DOC Hx Obtained From: Patient Onset/Duration: Sudden Onset, Started hours ago, Still Present Timing: Constant Onset Severity: Severe Current Severity: Severe Pain Intensity: 7 - chronic back pain, neck pain, leg pain Pain Scale Used: 0-10 Numeric Character: Unable To Describe Aggravating: Nothing Alleviating: Nothing Associated Signs and Symptoms: Positive: Weakness, Dizziness, Pain, Anxiety. Negative: Fever - Additional Pertinent History Primary Care Physician: ANN - Allergy/Home Medications Allergies/Adverse Reactions: Allergies Allergy/AdvReac Type Severity Reaction Status Date / Time Penicillins Allergy Severe Anaphylatic Verified 11/11/18 12:55 Shock amlodipine Allergy See Comment Verified 11/11/18 12:55 levofloxacin [From Levaquin] Allergy Dizziness Verified 11/11/18 12:55 Home Medications: Home Medications Hydrochlorothiazide TAB* [Hydrodiuril TAB*] 25 mg PO DAILY 11/11/18 [History Confirmed 11/11/18] Losartan Potassium [Cozaar] 50 mg PO DAILY 11/11/18 [History Confirmed 11/11/18] Meloxicam 7.5 mg PO DAILY PRN 11/11/18 [History Confirmed 11/11/18] PMH/Surg Hx/FS Hx/Imm Hx Previously Healthy: No Endocrine/Hematology History: Reports: Hx Diabetes Cardiovascular History: Reports: Hx Hypercholesterolemia, Hx Hypertension Denies: Hx Pacemaker/ICD History: Denies: Hx Renal Disease Musculoskeletal History: Reports: Hx Back Problems - scoliosis, DDD, central canal stenosis, OA, , Other Musculoskeletal History - JOINT PAIN AND SWELLING Sensory History: Reports: Hx Contacts or Glasses Denies: Hx Hearing Aid Opthamlomology History: Reports: Hx Contacts or Glasses Neurological History: Reports: Hx Peripheral Neuropathy Comment Only: Other Neuro Impairments/Disorders - PAIN CLINIC PT Psychiatric History: Reports: Hx Anxiety, Hx Depression Denies: Hx Panic Disorder - Cancer History Cancer Type, 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 Lt KNEE - REPLACEMENT. OVARIAN CYST REMOVED. CHOLECYSTECTOMY Infectious Disease History: No Infectious Disease History: Denies: Traveled Outside the [place] in Last 30 Days - Family History Known Family History: Positive: Other - Etoh abuse Family History: FMHx is limited. Both parents as a result of trauma. - Social History Lives: With Family Alcohol Use: None Hx Substance Use: Yes - pain clinic pt Substance Use Type: Reports: Prescribed Substance Use Comment - Amount & Last Used: medical marijuana for pain Smoking Status (MU): Never Smoked Tobacco Have You Smoked in the Last Year: No Review of Systems Negative: Fever Cardiovascular: Negative Respiratory: Negative Negative: Abdominal Pain Positive: no symptoms reported Positive: Arthralgia Skin: Negative Neurological: Other - positive: dizziness Positive: Weakness Positive: Anxious All Other Systems Reviewed And Are Negative: Yes Physical Exam - Summary Physical Exam Summary: Appearance: well-appearing, moderate pain distress, well-nourished Skin: Warm, color reflects adequate perfusion, dry, scars from left knee surgery , gallbladder surgery and left hip surgery. Head: Normal Head/Face inspection, atraumatic Eyes: Conjunctiva clear ENT: Normal inspection Neck: Supple, no nodes, no JVD Respiratory: Lungs clear, normal breath sounds, no respiratory distress Cardio: RRR, No murmur, pulses normal, brisk capillary refill Abdomen: Soft, nontender Bowel sounds: Present Musculoskeletal: Strength Intact/ROM intact, no calf tenderness, no edema. Psychological: Normal Neuro: Alert, muscle tone normal, no focal deficit Triage Information Reviewed: Yes Vital Signs On Initial Exam: Initial Vitals Temp Pulse Resp BP Pulse Ox 99.2 F 82 18 123/79 99 11/11/18 12:38 11/11/18 12:38 11/11/18 12:38 11/11/18 12:38 11/11/18 12:38 Vital Signs Reviewed: Yes Diagnostics - Vital Signs Vital Signs Temp Pulse Resp BP Pulse Ox 11/11/18 14:22 76 18 131/70 98 11/11/18 14:00 74 18 99 11/11/18 13:52 76 15 104/55 98 11/11/18 13:22 74 12 112/67 98 11/11/18 13:00 80 20 99 11/11/18 12:53 78 16 120/74 98 11/11/18 12:52 78 13 100 11/11/18 12:38 99.2 F 82 18 123/79 99 - Laboratory Result Diagrams: 11/11/18 14:51 11/12/18 00:09 Lab Statement: Any lab studies that have been ordered have been reviewed, and results considered in the medical decision making process. - Radiology CXR Radiology Interpretation Completed By: Radiologist Summary of Radiographic Findings: NO ACTIVE CARDIOPULMONARY DISEASE. ED physician has reviewed this imaging report. - EKG 14:43 Cardiac Rate: NL - 74 bpm EKG Rhythm: Sinus Rhythm ST Segment: Normal Ectopy: None EKG Comparison: No Significant Change Summary of EKG Findings: An EKG at 74 bpm reveals SR, nml AV/IV CT, nml QTc, and nml axis. No acute changes. No change compared with 09/14/17. ED MD has reviewed and interpreted this EKG. Course/Dx - Course Course Of Treatment: A 63 y/o female presents to [facility] with a chief complaint of low sodium today 11/11/18. Her sodium was 118 this morning and the patient is weak and dizzy. The physical exam revealed scars from left knee surgery, gallbladder surgery and left hip surgery. In the ED course the patient was given 1,000 mls at 1,000 mls/hr Sodium Chloride IV at 15:47 and 1mg Lorazepam PO at 15:53. Bloodwork, chemistries and urines obtained. WBC of 11.7 and lactic acid of 3.6 at 14:51. Ur Specific gravity of 1.005 at 15:16. CXR impression: NO ACTIVE CARDIOPULMONARY DISEASE. An EKG at 1443 reveals SR, 74 bpm, nml AV/IV CT , nml QTc, and nml axis. No acute changes. No change compared with 09/14/17. ED MD has reviewed and interpreted this EKG. Case discussed with Dr. Bartholomew, hospitalist, who accepted the patient for admission. The patient is agreeable with this plan. Gentle hydration was started for possible dehydration due to the HCTZ as the cause of the hyponatremia. Further evaluation and treatment will be by Dr. Bartholomew. - Differential Dx Differential Diagnoses Neuro: Positive: Hypovolemia, Medication Reaction, Metabolic Abnormality - Diagnoses Provider Diagnoses: Hyponatremia, Chronic pain, Elevated lactic acid level - Physician Notifications Discussed Care Of Patient With: Jade Bartholomew Time Discussed With Above Provider: 16:02 Instructed by Provider To: Admit As Inpatient - Critical Care Time Critical Care Time: 30-74 min Discharge - Sign-Out/Discharge Documenting (check all that apply): Patient Departure - admit Patient Received Moderate/Deep Sedation with Procedure: No - Discharge Plan Condition: Stable Disposition: ADMITTED TO [facility] - Billing Disposition and Condition Condition: STABLE Disposition: Admitted to [facility] - Attestation Statements Document Initiated by Nikolas: Yes Documenting Scribe: Vick Sandy Provider For Whom Nikolas is Documenting (Include Credential): Dr. Elisa Turner MD Scribe Attestation: Vick Dwyer scribed for Dr. Elisa Turner MD on 11/12/18 at 0632. Scribe Documentation Reviewed: Yes Provider Attestation: The documentation as recorded by the Vick newman accurately reflects the service I personally performed and the decisions made by me, Dr. Elisa Turner MD Status of Scribe Document: Viewed
[2018-11-11 14:59] LABS: ABS Basophils 0.1 10^3/ul (0-0.2); ABS Eosinophils 0.2 10^3/ul (0-0.6); ABS Lymphocytes 3.3 10^3/ul (1.0-4.8); ABS Monocytes 1.2 10^3/ul (0-0.8); ABS Neutrophils 6.9 10^3/ul (1.5-7.7); Eosinophil % 1.5 %; Hematocrit 41 % (35-47); Hemoglobin 13.7 g/dL (12.0-16.0); Lymphocyte % 27.9 %; Mean Corpuscular HGB Conc 34 g/dL (31-36); Mean Corpuscular Hemoglobin 28 pg (27-31); Mean Corpuscular Volume 84 fL (80-97); Mean Platelet Volume 6.9 fL (7.4-10.4); Nucleated Red Blood Cells % 0.1; Platelet Count 256 10^3/uL (150-450); Red Blood Count 4.84 10^6 /uL (3.70-4.87); Red Cell Distribution Width 13 % (10-15); White Blood Count 11.7 10^3/uL (3.5-10.8)
[2018-11-11 15:14] LABS: Activated Partial Thrombo Time 30.9 seconds (26.0-38.0); INR 0.9 (0.82-1.09)
[2018-11-11 15:17] LABS: Albumin 4.3 g/dL (3.2-5.2); Albumin/Globulin Ratio 1.7 (1-3); BUN/Creatinine Ratio 12.6 (8-20); C Reactive Protein 2.06 mg/L (<8.01); Calcium 9.8 mg/dL (8.6-10.3); EGFR African American 37.3 (>60); EGFR Non-African American 30.8 (>60); Globulin 2.5 g/dL (2-4); Magnesium 2.4 mg/dL (1.9-2.7); Potassium 3.6 mmol/L (3.5-5.0); Total Bilirubin 0.4 mg/dL (0.2-1.0); Total Protein 6.8 g/dL (6.4-8.9)
[2018-11-11 15:30] LABS: Urine Appearance Clear; Urine Bilirubin Negative (Negative); Urine Blood Negative (Negative); Urine Color Straw; Urine Glucose Negative (Negative); Urine Ketones Negative (Negative); Urine Nitrite Negative (Negative); Urine Protein Negative (Negative); Urine Specific Gravity 1.005 (1.010-1.030); Urine Urobilinogen Negative (Negative)
[2018-11-11 15:42] LABS: TSH (Thyroid Stimulating Horm) 1.04 mcIU/mL (0.34-5.60)
[2018-11-11] MEDS ORDERED: NS 0.9% 1000 ML** 1,000 ML IV ONE (15:47)
[2018-11-11] MEDS ORDERED: LORazepam TAB(*) 1 MG PO ONE (15:53)
[2018-11-11] MEDS ORDERED: Magnesium Hydroxide LIQ* 30 ML UDC PO PRN (16:43)
[2018-11-11] MEDS ORDERED: Al Hydrox/Mg Hydrox/Simet LIQ* 30 ML UDC PO PRN (16:43)
[2018-11-11] MEDS ORDERED: Docusate CAP* 100 MG PO PRN (16:43)
[2018-11-11] MEDS ORDERED: NS 0.9% 1000 ML** 1,000 ML IV SCH (16:45)
[2018-11-11] MEDS ORDERED: Dextrose 50% Syringe 50 ML* 25 GM/50 ML SYRINGE IV PUSH PRN (16:47)
[2018-11-11 18:29] LABS: Calcium 9.6 mg/dL (8.6-10.3); EGFR African American 49.3 (>60); EGFR Non-African American 40.7 (>60); Potassium 3.1 mmol/L (3.5-5.0)
--- NOTE | 2018-11-11 18:36 | HP ---
HISTORY AND PHYSICAL: ADDENDUM: In regard to the patient's diabetes, the patient is only on metformin , which is going to be held. The patient is going to be placed on insulin sliding scale while in the hospital. I suspect her elevation of lactic acid is due to use of metformin while dehydrated. We will hold metformin and that could be restarted once the patient's creatinine is improved and the patient is no longer on hydrochlorothiazide. I do not believe that her lactic elevation has anything to do with hypoperfusion or infection. [id number]/[facility] #: [id number] [facility]
--- NOTE | 2018-11-11 19:09 | HP ---
ADDENDUM NOW INCLUDED ON THIS REPORT CC: Dr. Amy Mason * HISTORY AND PHYSICAL: DATE OF ADMISSION: 11/11/18 PRIMARY CARE PROVIDER: Dr. Amy Mason. CHIEF COMPLAINT: Generalized weakness and abnormal lab work. HISTORY OF PRESENT ILLNESS: Ms. Schilling is a 63-year-old female with history of chronic anxiety, chronic pain due to spinal stenosis, who also has had problems with hypertension and was just recently started on hydrochlorothiazide. As per the patient, she was started on hydrochlorothiazide approximately a week ago. She had lab work done today in the morning and her sodium was 118. She had complained of generalized weakness and not urinating that much to Dr. Mason, at that point her hydrochlorothiazide was stopped. She has not taken it for the past couple of days. Her sodium today is 120 and creatinine of 1.67. She is going to be placed on overnight observation with a diagnosis of acute kidney injury and hyponatremia. PAST MEDICAL HISTORY: 1. History of chronic pain due to spinal stenosis. Dr. Jamison had been doing pain management injections to the patient's spine area recently. 2. History of gastroesophageal reflux disease. 3. Hypertension. 4. Asthma. 5. Anxiety, on chronic benzodiazepines. 6. History of non-Hodgkin's lymphoma, status post chemo and radiation. 7. History of addiction to pain medications due to her chronic pain. PAST SURGICAL HISTORY: 1. History of status post left knee replacement and left femur ORIF. 2. Cholecystectomy. MEDICATIONS AT HOME: Include: 1. Meloxicam 7.5 mg daily p.r.n. 2. Hydrochlorothiazide 25 mg daily. 3. Medical marijuana on a p.r.n. basis. 4. Metformin 500 mg b.i.d. 5. Losartan 50 mg daily. 6. Baclofen 5 mg 3 times a day. 7. Lorazepam 1 mg at 9 a.m., 2 p.m., 2100. 8. Gabapentin 800 mg 3 times a day. 9. Acetaminophen on a p.r.n. basis. ALLERGIES: Include PENICILLIN, LEVOFLOXACIN, and AMLODIPINE. FAMILY HISTORY: The patient's both parents of trauma. The patient's mom had a broken leg and when she went to the hospital, she of complications of the treatment there. Her father of a femur fracture in his 80s. SOCIAL HISTORY: The patient denies any tobacco, alcohol, or drug use. She lives with her , who is her surrogate. She is a full code. REVIEW OF SYSTEMS: Please see history of present illness. All the remaining 12 systems were reviewed with the patient and were otherwise negative. PHYSICAL EXAMINATION GENERAL: The patient is a pleasant 63-year-old female, who is in no acute distress. Alert, awake, and oriented x3. VITAL SIGNS: Blood pressure of 137/79, heart rate of 74 and regular, respiratory rate 21, oxygen saturation 99% on room air, temperature of 99.2. HEENT: Head: Atraumatic, normocephalic. Eyes: Pupils are equal, reactive to light and accommodation. Oropharynx is clear. Mucosa moist. NECK: Supple. No JVD. No bruits bilaterally. RESPIRATORY: Clear to auscultation bilaterally. CARDIOVASCULAR: Regular rate and rhythm. No murmur. ABDOMEN: Soft, nontender. Bowel sounds are present in all 4 quadrants. EXTREMITIES: There is no edema. Pulses are +2 bilaterally. No clubbing or cyanosis. PSYCHIATRIC: Oriented x3 with no evidence of anxiety or depression. SKIN: On evaluation of the skin, no ecchymotic areas or rashes noted. DIAGNOSTIC STUDIES/LAB DATA: Laboratory data showed sodium of 120, potassium 3.6, chloride 79, carbon dioxide 28, anion gap 13, BUN 21, creatinine was 1.67. Liver function tests unremarkable. Lactic acid of 3.6. Serum osmolality was 268. TSH of 1.04. CBC: White blood cell count of 11.7, hemoglobin of 13.7, hematocrit of 41, and platelets of 256,000. Urinalysis showed low specific gravity at 1.005 with urine sodium concentration of 22 and osmolality of 162. Portable chest x-ray, impression: "No active cardiopulmonary disease." ASSESSMENT AND PLAN: 1. Hyponatremia and hypochloremia as well as acute kidney injury, likely secondary to hydrochlorothiazide use. I inquired with the patient about possibility of other etiologies of her may be getting dehydrated, but she stated that otherwise she had been doing fine and there is no indication that she is undergoing any other illness process at this point. She is on gabapentin as well as benzodiazepines that likely predisposed the patient further to hyponatremia, but that was not the case in the past with this patient. At this point, the patient already received a liter of intravenous hydration in the ED. I will place the patient on slow rate IV fluids with normal saline at 75 mL an hour. Her hydrochlorothiazide and losartan are going to be held. We will check her basic metabolic panel every 6 hours. I suspect the patient will be able to go home tomorrow afternoon. 2. In regards to the patient's hypertension, at this point, the patient's losartan likely will be restarted at discharge. 3. Acute kidney injury, likely due to dehydration and hydrochlorothiazide. We will follow creatinine in the morning. 4. Chronic anxiety. The patient's lorazepam is going to be continued as previously ordered. 5. For DVT prophylaxis, the patient is going to be placed on heparin subcutaneously. 6. The patient's code status is full. Her surrogate is her . TIME SPENT: Approximately 55 minutes were spent on admission of this patient, more than half that time was spent [id number] with the patient during the interview and physical exam. ADDENDUM: In regard to the patient's diabetes, the patient is only on metformin , which is going to be held. The patient is going to be placed on insulin sliding scale while in the hospital. I suspect her elevation of lactic acid is due to use of metformin while dehydrated. We will hold metformin and that could be restarted once the patient's creatinine is improved and the patient is no longer on hydrochlorothiazide. I do not believe that her lactic elevation has anything to do with hypoperfusion or infection. [id number]/[facility] #: [id number] [id number]/[facility] #: [id number] JESSICA
[2018-11-11] MEDS ORDERED: traMADol TAB* 50 MG PO ONE (19:33)
[2018-11-11] MEDS: LORazepam TAB(*) 1 MG PO SCH (20:17)
[2018-11-11] MEDS: Gabapentin CAP(*) 400 MG PO SCH (20:18)
[2018-11-11] MEDS: Senna TAB PO SCH (20:18)
[2018-11-11] MEDS: Heparin VIAL(*) 5000 UNITS/ML VIAL (FIVE THOUSAND) SUBCUT SCH (20:19)
[2018-11-11] MEDS: Baclofen TAB* 10 MG PO SCH (20:19)
[2018-11-12 00:32] LABS: BUN/Creatinine Ratio 17.2 (8-20); Calcium 9.2 mg/dL (8.6-10.3); EGFR African American 73.2 (>60); EGFR Non-African American 60.5 (>60); Potassium 3.3 mmol/L (3.5-5.0)
[2018-11-12] MEDS: LORazepam TAB(*) 1 MG PO SCH ×3 (05:59→13:10)
[2018-11-12] MEDS: Baclofen TAB* 10 MG PO SCH ×3 (06:00→13:09)
[2018-11-12] MEDS: Heparin VIAL(*) 5000 UNITS/ML VIAL (FIVE THOUSAND) SUBCUT SCH ×2 (06:02→13:09)
[2018-11-12 07:05] LABS: EGFR African American 72.3 (>60); EGFR Non-African American 59.8 (>60); Potassium 2.9 mmol/L (3.5-5.0)
[2018-11-12 07:38] LABS: ABS Eosinophils 0.1 10^3/ul (0-0.6); ABS Lymphocytes 2.3 10^3/ul (1.0-4.8); ABS Monocytes 0.8 10^3/ul (0-0.8); ABS Neutrophils 4.3 10^3/ul (1.5-7.7); Hematocrit 37 % (35-47); Hemoglobin 12.6 g/dL (12.0-16.0); Lymphocyte % 30.5 %; Mean Corpuscular HGB Conc 35 g/dL (31-36); Mean Corpuscular Hemoglobin 29 pg (27-31); Mean Corpuscular Volume 83 fL (80-97); Mean Platelet Volume 7.5 fL (7.4-10.4); Nucleated Red Blood Cells % 0.1; Platelet Count 294 10^3/uL (150-450); Red Blood Count 4.43 10^6 /uL (3.70-4.87); Red Cell Distribution Width 13 % (10-15); White Blood Count 7.5 10^3/uL (3.5-10.8)
[2018-11-12] MEDS ORDERED: Potassium Chlor TAB* 20 MEQ TAB.ER PO ONE (07:47)
[2018-11-12] MEDS: Gabapentin CAP(*) 400 MG PO SCH ×2 (07:49→13:10)
[2018-11-12] MEDS: Acetaminophen TAB* 325 MG PO PRN ×2 (07:50→11:41)
[2018-11-12] MEDS: Senna TAB PO SCH (07:51)
[2018-11-12] MEDS: Insulin LISPRO* 1 UNITS UNIT SUBCUT SCH ×2 (07:55→13:09)
[2018-11-12 07:57] LABS: Calcium 9.6 mg/dL (8.6-10.3); Potassium 3.1 mmol/L (3.5-5.0)
[2018-11-12] MEDS ORDERED: KCL 20 MEQ/100 ML IVPREMIX* 20 MEQ/100 ML BAG IV ONE (08:00)
[2018-11-12 08:02] LABS: BUN/Creatinine Ratio 15.8 (8-20); EGFR African American 71.4 (>60)
[2018-11-12] MEDS ORDERED: traMADol TAB* 50 MG PO PRN (08:55)
[2018-11-12 13:21] LABS: CO2 Carbon Dioxide 24 mmol/L (22-32); Calcium 9.2 mg/dL (8.6-10.3); Chloride 94 mmol/L (101-111); Sodium 127 mmol/L (135-145)
[2018-11-12 13:26] LABS: BUN/Creatinine Ratio 18.7 (8-20); Blood Urea Nitrogen 14 mg/dL (6-24); EGFR African American 93.8 (>60); EGFR Non-African American 77.6 (>60); Glucose 166 mg/dL (70-100)
[2018-11-12 14:28] LABS: Anion Gap 9 mmol/L (2-11)
--- NOTE | 2018-11-12 15:21 | DS ---
CC: Dr. Amy Mason * DISCHARGE SUMMARY: DATE OF ADMISSION: 11/11/18 DATE OF DISCHARGE: 11/12/18 PRIMARY CARE PROVIDER: Dr. Amy Mason. DISPOSITION AT DISCHARGE: Home. CONDITION AT DISCHARGE: Stable. DISCHARGE DIAGNOSIS: Acute kidney injury and hyponatremia, likely related to hydrochlorothiazide use. MEDICATIONS AT DISCHARGE: Include: 1. Acetaminophen on a p.r.n. basis. 2. Baclofen 5 mg t.i.d. p.r.n. 3. Gabapentin 800 mg 3 times a day. 4. Losartan 50 mg daily. 5. Medical marijuana as used before. 6. Meloxicam 7.5 mg daily. 7. Metformin 500 mg b.i.d. 8. Lorazepam 1 mg 3 times a day as needed for anxiety. DISCHARGE INSTRUCTIONS: The patient is recommended to check a basic metabolic panel in 3 days and follow up with Dr. Amy Mason in 4 to 7 days. LABORATORY DATA: On the day of discharge included white blood cell count of 7.5 , hemoglobin 12.6, hematocrit 37, and platelets 294. Sodium was 127, potassium 4.3, chloride 94, carbon dioxide 24, BUN 14, creatinine 0.75. HOSPITALIZATION COURSE: Ms. Schilling is a 63-year-old female with history of anxiety, chronic pain and hypertension, who was just recently started on hydrochlorothiazide and felt weak. She went to Dr. Amy Mason for evaluation and there she had a basic metabolic panel obtained, which showed sodium of 117. By the time she presented to the ED for evaluation several hours later, her sodium was 120. She was placed on overnight observation and treated with intravenous fluids. Her hydrochlorothiazide was held. By the time of discharge , her sodium was up to 127. She had transient hypokalemia that was replaced orally. She felt much better and she was ready to go home. Please also note that the patient had acute kidney injury with creatinine of 1.67 at admission that resolved after hydrochlorothiazide was stopped and losartan was held. At discharge, the patient's losartan is going to be restarted. She is recommended to follow up with basic metabolic panel in 3 days. PHYSICAL EXAMINATION: At the time of discharge, blood pressure of 123/56, heart rate of 79 and regular, respiratory rate 16, oxygen saturation 100% on room air, temperature 98.0. General: The patient is a pleasant 63-year-old female, who is no acute distress. Alert, awake, and oriented x3. HEENT: Head : Atraumatic, normocephalic. Eyes: Pupils are equal, reactive to light and accommodation. Oropharynx is clear. Mucosa moist. Neck: Supple. No JVD. No bruits bilaterally. Cardiovascular: Regular rate and rhythm. No murmur. Respiratory: Clear to auscultation bilaterally. Abdomen: Soft, nontender. Bowel sounds are present in all 4 quadrants. Extremities: There is no edema. Pulses are +2 bilaterally. No clubbing or cyanosis. On evaluation of the skin, no ecchymotic areas or rashes noted. Please note that this is a short summary of the patient's hospital stay. Please refer to further medical records for details. [id number] #: [id number] MTDD
[2018-11-12 15:40] VITALS: BP 121/56
== END 2018-11-12 16:37 | disposition home or self-care (01) ==
LOC: ED 12:35 → MED 16:43
PROVIDERS: ADMIT Internal Medicine; ATTEND Internal Medicine
DX: N17.9 Acute kidney failure, unspecified (principal); E87.1 Hypo-osmolality and hyponatremia; E11.9 Type 2 diabetes mellitus without complications; G89.29 Other chronic pain; M48.00 Spinal stenosis, site unspecified; K21.9 Gastro-esophageal reflux disease without esophagitis; I10 Essential (primary) hypertension; J45.909 Unspecified asthma, uncomplicated; F41.9 Anxiety disorder, unspecified; Z79.899 Other long term (current) drug therapy; Z88.0 Allergy status to penicillin; R42 Dizziness and giddiness
CPT/HCPCS: 36415; 71045; 80048; 80053; 81003; 82550; 83605; 83735; 83880; 83930; 83935; 84300; 84443; 84484; 85025; 85610; 85730; 86140; 93005; 96372; 96374; 99284; A9270-GY; G0378; J1644; J3480

== ENCOUNTER 2019-06-13 09:14 | Emergency (ER) | payer MEDICARE, OTHER ==
--- OUTSIDE RECORDS SUMMARY | 2019-06-13 09:25 | XMS REPORT | Continuity of Care Document ---
:1955 External Reference #:[id number] Author Name Amy Quijano MD (transmitted by agent of provider Nicolasa Escalona) Address [facility] [facility] [address] [place] [address] Care Team Providers Name Role Phone Amy Quijnao MD - Family Medicine Care Team Information Manager Community Problems Active Problems Provider Date Atrophic vaginitis Onset: 12/13/2018 Generalized anxiety disorder Onset: 05/24/1989 Insomnia Onset: 11/16/2018 Diffuse non-Hodgkin's lymphoma Onset: 05/24/2004 Pain of right shoulder blade Onset: 11/02/2018 Fatigue Onset: 11/02/2018 Hypomagnesemia Onset: 11/02/2018 Herpes zoster Onset: 05/24/2006 Intercostal post-herpetic neuralgia Onset: 05/24/2006 Moderate recurrent major depression Onset: 05/24/2014 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 Onset: 05/02/2018 Chronic pain syndrome Onset: 12/07/2016 Mild intermittent asthma Onset: 11/30/2017 Essential hypertension Onset: 12/07/2016 Opioid dependence Onset: 09/21/2017 Neuropathy due to type 2 diabetes mellitus Onset: 09/21/2017 Type 2 diabetes mellitus with multiple Onset: 09/21/2017 complications Vitamin D deficiency Onset: 12/07/2016 Degenerative joint disease involving multiple Onset: 12/07/2016 joints Osteoporosis Onset: 12/07/2016 Rhabdomyolysis Onset: 09/16/2017 Spinal stenosis of lumbar region Onset: 06/22/2017 H/O: hip fracture Onset: 07/26/2017 Neurogenic claudication co-occurrent and due to Onset: 06/22/2017 spinal stenosis of lumbar region Mixed hyperlipidemia Onset: 07/20/2017 Type 2 diabetes mellitus Amy Quijano MD Onset: 06/12/2019 Lumbosacral spondylosis without myelopathy Amy Quijano MD Onset: 06/12/2019 Social History Type Date Description Comments Sex Unknown ETOH Use Occasionally consumes alcohol Tobacco Use Start: Unknown End: Patient is a former former sometime Unknown smoker smoker, quit over 10 yrs ago Recreational Drug Use Denies Drug Use Smoking Status Reviewed: 08/11/18 Patient is a former former sometime smoker smoker, quit over 10 yrs ago Exercise Type/Frequency Does not exercise Allergies, Adverse Reactions, Alerts Active Allergies Reaction Severity Comments Date Penicillin muscle spasm 02/02/2018 Levaquin Diarrhea 02/02/2018 Amlodipine swelling 06/08/2018 Clindamycin Diarrhea, vomiting, rash 06/08/2018 Hydrochlorothiazide Other Severe 05/24/2019 Trazodone Other Severe 05/24/2019 Amlodipine Edema 05/24/2019 Levaquin Lightheadedness Severe 05/24/2019 Medications Active Medications SIG Qnty Indications Ordering Provider Date Bjvmbhv-Yhudhevht-Yvg 1 a day Amy Quijano MD 06/12/2019 c 500-250-12.5mg Tablets [place] 3 1 po bid Amy Quijano MD 06/12/2019 1000mg Capsules Rosuvastatin Calcium 1 po qd Amy Quijano MD 06/12/2019 10mg Tablets Pyxeyao-Mkhrcuqmt-Ypl 1 po bid Amy Quijano MD 06/12/2019 c-D3 -D3 Tablets Ibuprofen 200 2 or 3 tablets po Amy Quijano MD 06/12/2019 200mg qd prn Tablets Medical Marijuana 1 po qd per G89.4 Amy Quijano MD 06/12/2019 Balance Equal 8 TCH, cannabis pharmacist 8 CBD/Capsule Metformin HCL 1 po bid Amy Quijano MD 1000mg Tablets Lorazepam 1 po bid Amy Quijano MD 1mg Tablets Baclofen Take 1/2 Or 1 Unknown 10mg Tablets Tablet Every 8 Hours as Needed For Muscle Spasms, usually takes it once a day Losartan Potassium 1 po bid Amy Quijano MD 50mg Tablets Dulera 2 puff twice a day Unknown 200-5mcg/Act prn when ill Aerosol Gabapentin Take 1 Tablet By Unknown 800mg Mouth Three Times A Tablets Day Immunizations CPT Code Status Date Vaccine Lot # [id number] Given 02/24/2019 Fluzone High Dose [id number] Given 03/03/2018 Influenza Virus Vaccine, Quadrivalent, Split, Preservative Free 53710 Given 11/30/2017 Tdap - Tetanus/Diptheria/Acellular Pertussis [id number] Given 03/25/2015 Flu Vaccine 17787 Given Unknown Zoster (Shingles) Vaccine (HZV), Recombinant, Subunit, Adjuvanted Vital Signs Date Vital Result Comment 06/12/2019 1:28pm Height 59 inches 4'11" Weight 136.50 lb Heart Rate 75 /min BP Systolic 157 mmHg BP Diastolic 89 mmHg Body Temperature 98.5 F O2 % BldC Oximetry 98 % BMI (Body Mass Index) 27.6 kg/m2 04/12/2019 12:00am Height 59 inches Weight 132.81 lb BP Systolic 119 mmHg BP Diastolic 75 mmHg BMI (Body Mass Index) 26.8 kg/m2 Results Test Acquired Date Facility Test Result H/L Range Note hemoglobin A1c 04/05/2019 N2N/CCD Import Hemoglobin 6.9 % High 4.0-5.6 A1c/Hemoglobin .total in Blood Comprehensive 04/05/2019 N2N/CCD Import sodium 133 mmol/L Low 135-145 metabolic 2000 panel - Serum or Plas potassium 4.3 mmol/L 3.5-5.0 chloride 100 mmol/L Low 101-111 Co2 carbon dioxide 27 mmol/L 22-32 anion gap 6 mmol/L 2-11 glucose 106 mg/dL High 70-100 blood urea nitrogen 10 mg/dL 6-24 creatinine 0.89 mg/dL 0.51-0.95 BUN/creatinine ratio 11.2 8-20 calcium 9.5 mg/dL 8.6-10.3 total protein 6.2 g/dL Low 6.4-8.9 albumin 4.2 g/dL 3.2-5.2 globulin 2.0 g/dL 2-4 albumin/globulin ratio 2.1 1-3 total bilirubin 0.30 mg/dL 0.2-1.0 alkaline phosphatase 49 U/L 34-104 Alt 15 U/L 7-52 Ast 14 U/L 13-39 eGFR non- 63.5 >60 eGFR 76.8 >60 25-Hydroxyvitamin D 04/05/2019 N2N/CCD Import vitamin D total 29.5 NG/mL 20-50 [Mass/volume] in Serum 25(oh) or Plas Trichomonas vaginalis 12/15/2018 N2N/CCD Import trichomonas negative negative rRNA [Presence] in vaginalis result Unspecifi GC/chlamydia Rna 12/15/2018 N2N/CCD Import chlamydia negative negative trachomatis Rna neisseria gonorrhoeae (GC) Rna negative negative Procedures Date Code Description Status 01/06/2018 51029843 Colonoscopy Completed Medical Devices Description No Information Available Encounters Description No Information Available Assessments Date Code Description Provider 06/12/2019 E11.9 Type 2 diabetes mellitus well controlled Amy Quijano MD 06/12/2019 M47.26 Other spondylosis with radiculopathy, lumbar Amy Quijano MD region 06/12/2019 N95.2 Atrophic vaginitis Amy Quijano MD 06/12/2019 G89.4 Chronic pain syndrome Amy Quijano MD 06/12/2019 F33.1 Moderate recurrent major depression Amy Quijano MD Plan of Treatment Future Appointment(s):06/27/2019 1:30 pm - [facility]06/12/2019 - Amy Quijano MDE11.9 Type 2 diabetes mellitus well controlledComments:You are/are not meeting goal for blood sugar control. Changes to medications are/are not indicated. A yearly nutrition visit is available to all diabetics.Follow up:3 months, 20 min 3 months, 20 minRecommendations:See your van owner operator every year. It is OK to go every 2 years if he finds no retinal damage from diabetes. Ask your van owner operator to communicate his findings to us. See a dental front office assistant every 6 months if you have numbness in your feet or a history of foot ulcers. See your van owner operator every year. It is OK to go every 2 years if he finds no retinal damage from diabetes. Ask your van owner operator to communicate his findings to us. See a dental front office assistant every 6 months if you have numbness in your feet or a history of foot ulcers.M47.26 Other spondylosis with radiculopathy, lumbar urbxlqO81.2 Atrophic lmyifltkyN40.4 Chronic pain syndromeNew Medication:Medical Marijuana Balance Equal 8 TCH, 8 CBD/Capsule - 1 po qd per cannabis pharmacistFollow up: f/u in two weeks and we must have the note from Dr Jamison for the next appt. which is in three daysF33.1 Moderate recurrent major depressionComments: Goals 06/12/2019 - Amy Quijano MDE11.9 Type 2 diabetes mellitus well controlledGoal Hemoglobin A1c is less than 7.0%. Goal Blood pressure is less than 130/85. Goal LDL (bad cholesterol) is less than 100. Goal Hemoglobin A1c is less than 7.0%. Goal Blood pressure is less than 130/85. Goal LDL (bad cholesterol) is less than 100. Functional Status Description No Information Available Mental Status Description No Information Available Referrals Description No Information Available
--- NOTE | 2019-06-13 09:40 | ED ---
Adult Trauma - HPI Summary HPI Summary: Patient is a 64 y/o F presenting to the ED via EMS for a chief complaint of left -sided rib pain, left shoulder pain, back pain, neck pain, and headache after a fall on 06/13/19. Per EMS, patient slipped and fell down 8 steps of stairs at her house. She notes a loss of consciousness after the fall, but is unsure how long she lost consciousness. After the fall, she was able to ambulate up the stairs where she was found by her . She was placed in a C-collar by EMS for neck pain. Patient denies taking blood thinners. - History of Current Complaint Chief Complaint: EDFall Stated Complaint: FALL PER EMS Time Seen by Provider: 06/13/19 09:25 Hx Obtained From: Patient, EMS ?: No Mechanism of Injury: Fall Ambulatory at the Scene: Yes Loss of Consciousness: unsure Onset/Duration: Traumatic - Fall, Still Present Onset of Pain: Immediate Onset Severity: Severe Current Severity: Severe Pain Intensity: 10 Pain Scale Used: 0-10 Numeric Location: Head, Neck, Chest, Back Aggravating Factor(s): Nothing Alleviating Factor(s): Nothing Associated Signs & Symptoms: Positive: Chest Pain, Loss of Consciousness - Resolved - Additional Pertinent History Primary Care Physician: [id number] - Allergy/Home Medications Allergies/Adverse Reactions: Allergies Allergy/AdvReac Type Severity Reaction Status Date / Time Penicillins Allergy Severe Anaphylatic Verified 11/14/18 13:10 Shock amlodipine Allergy See Comment Verified 11/14/18 13:10 levofloxacin [From Levaquin] Allergy Dizziness Verified 11/14/18 13:10 Home Medications: Home Medications Calcium Carb/D3/Magnesium/Zinc [Kthcije-Hvo-Dwio-Vit D Tablet] 1 each PO BID [History Confirmed 06/13/19] Calcium Carb/Mag Ox/Zinc Sulf [Calcium & Magnesium + Zin 334-134-5 mg] 1 tab PO DAILY 06/13/19 [History Confirmed 06/13/19] Ibuprofen TAB* [Advil TAB*] 400 - 600 mg PO DAILY PRN 06/13/19 [History Confirmed 06/13/19] LORazepam TAB(*) [Ativan 1 MG TAB (*)] 1 mg PO BID MDD 3 06/13/19 [History Confirmed 06/13/19] Mometasone/Formoter 200/5 MDI* [Dulera 200/5 MDI*] 2 puff INH BID PRN 06/13/19 [ History Confirmed 06/13/19] [place]-3 Fatty Acids (Nf) [Fish Oil (NF)] 1,000 mg PO BID 06/13/19 [History Confirmed 06/13/19] Rosuvastatin (NF) [Crestor (NF)] 10 mg PO DAILY 06/13/19 [History Confirmed ] PMH/Surg Hx/FS Hx/Imm Hx Previously Healthy: Yes Endocrine/Hematology History: Reports: Hx Diabetes Cardiovascular History: Reports: Hx Hypercholesterolemia, Hx Hypertension Denies: Hx Pacemaker/ICD History: Denies: Hx Renal Disease Musculoskeletal History: Reports: Hx Back Problems - scoliosis, DDD, central canal stenosis, OA, , Other Musculoskeletal History - JOINT PAIN AND SWELLING Sensory History: Reports: Hx Contacts or Glasses Denies: Hx Legally Blind, Hx Deafness, Hx Hearing Aid Opthamlomology History: Reports: Hx Contacts or Glasses Denies: Hx Legally Blind EENT History: Denies: Hx Deafness Neurological History: Reports: Hx Peripheral Neuropathy, Other Neuro Impairments /Disorders - PAIN CLINIC PT Psychiatric History: Reports: Hx Anxiety, Hx Depression Denies: Hx Panic Disorder - Cancer History Cancer Type, 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 Lt KNEE - REPLACEMENT. OVARIAN CYST REMOVED. CHOLECYSTECTOMY Infectious Disease History: No Infectious Disease History: Denies: Traveled Outside the [place] in Last 30 Days - Family History Known Family History: Positive: Other - Etoh abuse Family History: FMHx is limited. Both parents as a result of trauma. - Social History Occupation: Retired Lives: With Family Alcohol Use: None Hx Substance Use: Yes - pain clinic pt Substance Use Type: Reports: Marijuana Substance Use Comment - Amount & Last Used: medical marijuana for pain Hx Tobacco Use: No Smoking Status (MU): Never Smoked Tobacco Have You Smoked in the Last Year: No Review of Systems Positive: Chest Pain - Left-sided rib pain Positive: Arthralgia - Left shoulder, Myalgia - Back and neck Positive: Headache, Syncope - LOC, resolved All Other Systems Reviewed And Are Negative: Yes Physical Exam - Summary Physical Exam Summary: Constitutional: Well-developed, Well-nourished, Alert, Cooperative Skin: Warm, Dry HENT: Normocephalic, contusion R forehead, Midface stable, Dentition intact Eyes: EOM normal, PERRL Neck: Trachea is midline. No stridor; No JVD; No step off; + posterior cervical spine tenderness Cardio: Rhythm regular, rate normal Heart sounds normal; Intact distal pulses; The pedal pulses are 2+ and symmetric. Radial pulses are 2+ and symmetric. Pulmonary/Chest wall: Effort normal; Breath sounds normal; Equal chest rise; No flail segment; No rib tenderness; No sternal tenderness Abd: Soft, Appearance normal. No distension;L upper abdominal tenderness. Musculoskeletal: L shoulder tenderness, otherwise Full ROM and no tenderness at hips, ankles, elbows and knees; No joint swelling; + paraspinal tenderness; No step off or deformity of the spine. Cervical, thoracic, and lumbar midline tenderness, left lower ribcage tenderness. Neuro: Alert, Oriented x3, GCS 15. Strength 5/5 all extremities. Psych: Mood and affect Normal Triage Information Reviewed: Yes Vital Signs On Initial Exam: Initial Vitals Temp Pulse Resp BP Pulse Ox 98.6 F 83 20 170/97 97 06/13/19 09:20 06/13/19 09:20 06/13/19 09:20 06/13/19 09:20 06/13/19 09:20 Vital Signs Reviewed: Yes - Roney Coma Scale Best Eye Response: 4 - Spontaneous Best Motor Response: 6 - Obeys Commands Best Verbal Response: 5 - Oriented Coma Scale Total: 15 Procedures - Sedation Patient Received Moderate/Deep Sedation with Procedure: No Diagnostics - Vital Signs Vital Signs Temp Pulse Resp BP Pulse Ox 06/13/19 09:26 82 18 170/97 97 06/13/19 09:20 98.6 F 83 20 170/97 97 - Laboratory Result Diagrams: 06/13/19 09:35 06/13/19 09:35 Lab Statement: Any lab studies that have been ordered have been reviewed, and results considered in the medical decision making process. - Radiology Chest X-ray Radiology Interpretation Completed By: Radiologist Summary of Radiographic Findings: Chest X-ray IMPRESSION: NO ACTIVE CARDIOPULMONARY DISEASE. Reviewed by Dr. Omalley. - CT Brain CT CT Interpretation Completed By: Radiologist Summary of CT Findings: Brain CT IMPRESSION: SLIGHTLY LIMITED EXAM, NO EVIDENCE FOR ACUTE INTRACRANIAL ABNORMALITY. Reviewed by Dr. Omalley. Cervical Spine CT CT Interpretation Completed By: Radiologist Summary of CT Findings: Cervical Spine CT IMPRESSION: DEGENERATIVE DISC DISEASE AND OSTEOARTHRITIS DESCRIBED ABOVE. NO ACUTE OSSEOUS INJURY TO THE CERVICAL SPINE. Reviewed by Dr. Omalley. Chest/Abdomen/Pelvis CT CT Interpretation Completed By: Radiologist Summary of CT Findings: Chest/Abdomen/Pelvis CT IMPRESSION: CT of the chest abdomen and pelvis demonstrates fractures of the left eighth through 12th ribs. No pneumothorax is noted although some atelectasis is present. No vertebral body fracture is noted. The solid organs are intact without evidence of free fluid in the pelvis. Pelvic ring is intact. Degenerative disc disease at L3-L4 with grade 1 spondylolisthesis and bilateral spondylolysis of L3. Reviewed by Dr. Omalley. Re-Evaluation - Re-Evaluation First Eval Re-Evaluation Time: 11:55 Change: Improved Comment: C Spine Clearance Note. Patient was evaluated today for clearance of C -spine precautions. Patient was awake and alert and cooperative for exam. Patient without neurologic symptoms or neck pain. Patient did not exhibit any focal tenderness to direct palpation of the cervical spine. Patient was able to move head in all directions without limitation in the range of motion or without inciting additional pain or discomfort. No midline tenderness. Denies pain, weakness or numbness with flexion, extension, or rotation of the neck. [place] collar removed. C-collar cleared by Nexus Criteria. Based on this examination, C-spine precautions are no longer required and may be discontinued. Second Eval Re-Evaluation Time: 13:17 Change: Improved Comment: At 13:17, patient was able to ambulate. Still having significant L sided pain, CT shows L sided 8-12 rib fractures. Given percocet. Will d/w hopsitalist here for admission for pain control. Adult Trauma Course/Dx - Course Course Of Treatment: 64 y/o F p/w L rib pain and back pain after fall. - VSS. Primary survery: intact, CXR neg. Secondary survey with L rib tenderness, CTL spine tenderness, R forehead contusion. - Check CT brain/cspine, CT CAP, given morphine for pain control. - Diagnoses Provider Diagnoses: Rib pain, Rib fracture, Back pain, LOC (loss of consciousness), Fall - Physician Notifications Discussed Care Of Patient With: Dr. Linsey Su - At 13:39, Dr. Dr. Linsey Su at [facility] agrees to admit the patient as a transfer. Patient requires transfer due to multiple rib fractures that require a higher level of care. Time Discussed With Above Provider: 13:39 Instructed by Provider To: Transfer Reason For Transfer: [place] appropriate [place] [facility] [place] - Sign-Out/Discharge Documenting (check all that apply): Patient Departure - Transfer - Discharge Plan Condition: Stable Disposition: TRANS HIGHER LVL OF CARE FAC Patient Education Materials: Back Pain (ED), Rib Contusion (ED) Referrals: Amy Mason MD [Primary Care Provider] - Additional Instructions: You have been seen in the Emergency Department for a traumatic injury. Your CT scans showed rib fractures but did not show any other broken bones. We have evaluated you and have determined that you are stable to go home and follow up outpatient. When people are injured, it is common to have pain reach the worst it will be up to 24-48 hours after the injury. This means you may hurt worse when you get home. We recommend taking acetaminophen (Tylenol) to help with pain or ibuprofen (Motrin) to help with pain and swelling. You can take 500mg tylenol every 8 hours or 600mg motrin every 8 hours. It is normal to take these medications every 8 hours as needed for several days. Please return to the emergency department for trouble breathing, chest pain, nausea, vomiting, abdominal pain, confusion, severe headaches, new weakness or numbness or if you are concerned. We think it is important that you call and schedule an appointment to see your primary care doctor. It was pleasure taking care of you today. - Billing Disposition and Condition Condition: STABLE Disposition: Trans Higher Lvl of Care Fac - Attestation Statements Document Initiated by Scribe: Yes Documenting Scribe: Almaz Orta Provider For Whom Daniloibe is Documenting (Include Credential): Fanta Omalley MD Scribe Attestation: Almaz Dwyer, scribed for Fanta Omalley MD on 06/13/19 at 1355. Scribe Documentation Reviewed: Yes Provider Attestation: The documentation as recorded by the scribe, Almaz Orta accurately reflects the service I personally performed and the decisions made by me, Fanta Omalley MD Status of Nikolas Document: Viewed
[2019-06-13] MEDS ORDERED: Morphine 4 MG/ML VIAL (1 ml) 4 MG/ML VIAL IV ONE (09:41)
[2019-06-13] MEDS ORDERED: Ondansetron INJ* 2 MG/ML VIAL IV ONE (09:41)
[2019-06-13 09:43] LABS: ABS Basophils 0.1 10^3/ul (0-0.2); ABS Lymphocytes 1.9 10^3/ul (1.0-4.8); ABS Neutrophils 8.3 10^3/ul (1.5-7.7); Eosinophil % 0.2 %; Hematocrit 36 % (35-47); Lymphocyte % 17.1 %; Mean Corpuscular HGB Conc 33 g/dL (31-36); Mean Corpuscular Hemoglobin 28 pg (27-31); Mean Corpuscular Volume 83 fL (80-97); Mean Platelet Volume 7.6 fL (7.4-10.4); Nucleated Red Blood Cells % 0.1; Platelet Count 270 10^3/uL (150-450); Red Blood Count 4.37 10^6 /uL (3.70-4.87); Red Cell Distribution Width 14 % (10-15); White Blood Count 11.3 10^3/uL (3.5-10.8)
[2019-06-13 10:04] LABS: Albumin 4.3 g/dL (3.2-5.2); Albumin/Globulin Ratio 1.9 (1-3); BUN/Creatinine Ratio 15.6 (8-20); Calcium 9.7 mg/dL (8.6-10.3); EGFR African American 90.8 (>60); Globulin 2.3 g/dL (2-4); Total Bilirubin 0.5 mg/dL (0.2-1.0); Total Protein 6.6 g/dL (6.4-8.9)
[2019-06-13] MEDS ORDERED: Iodixanol* (CONTRAST) 320 MG/ML 100 ML SDV IV ONE (10:24)
[2019-06-13] MEDS ORDERED: Ibuprofen TAB* 600 MG PO ONE (12:34)
[2019-06-13] MEDS ORDERED: oxyCODONE/Acetamin 5/325 MG* TAB PO ONE (12:37)
[2019-06-13] MEDS ORDERED: Lidocaine PATCH 5%* 1 PATCH TRANSDERM SCH (13:00)
[2019-06-13 14:25] VITALS: BP 113/62
[2019-06-13] MEDS ORDERED: Lidocaine Patch REMOVE* 1 NOTE MISC SCH ×2 (21:00)
== END 2019-06-13 14:47 | disposition short-term general hospital (02) ==
LOC: ED 09:14
DX: S22.42XA Multiple fractures of ribs, left side, initial encounter for closed fracture (principal); S06.9X9A Unspecified intracranial injury with loss of consciousness of unspecified duration, initial encounter; M54.9 Dorsalgia, unspecified; W10.9XXA Fall (on) (from) unspecified stairs and steps, initial encounter; Y92.009 Unspecified place in unspecified non-institutional (private) residence as the place of occurrence of the external cause; E11.9 Type 2 diabetes mellitus without complications; E78.00 Pure hypercholesterolemia, unspecified; I10 Essential (primary) hypertension; F41.9 Anxiety disorder, unspecified; F32.9 Major depressive disorder, single episode, unspecified; Z96.652 Presence of left artificial knee joint; Z85.72 Personal history of non-Hodgkin lymphomas; Z79.899 Other long term (current) drug therapy; Z88.0 Allergy status to penicillin; Z88.1 Allergy status to other antibiotic agents; Z88.8 Allergy status to other drugs, medicaments and biological substances
CPT/HCPCS: 36415; 70450; 71045; 71260; 72125; 74177; 80053; 85025; 96374; 96375; 99285; A9270-GY; J2270; J2405; Q9967

== ENCOUNTER 2022-03-13 16:54 | Inpatient (IN) ==
[2022-03-13] MEDS ORDERED: NS 0.9% 1000 ml BAG 1,000 ML IV ONE (16:57)
[2022-03-13 18:24] LABS: ABS Eosinophils 0.2 10^3/ul (0-0.6); ABS Lymphocytes 1.4 10^3/ul (1.0-4.8); ABS Monocytes 0.7 10^3/ul (0-0.8); ABS Neutrophils 5.8 10^3/ul (1.5-7.7); Eosinophil % 2.4 %; Hematocrit 37 % (35-47); Hemoglobin 12.5 g/dL (12.0-16.0); Mean Corpuscular HGB Conc 34 g/dL (31-36); Mean Corpuscular Hemoglobin 28 pg (27-31); Mean Corpuscular Volume 82 fL (80-97); Mean Platelet Volume 6.7 fL (7.4-10.4); Nucleated Red Blood Cells % 0.1; Platelet Count 284 10^3/uL (150-450); Red Blood Count 4.49 10^6 /uL (3.70-4.87); Red Cell Distribution Width 13 % (10-15)
[2022-03-13 18:49] LABS: High Sens Troponin Baseline 54 pg/mL (<15)
[2022-03-13 18:56] LABS: ALT 38 U/L (7-52); AST 41 U/L (13-39); Albumin 2.8 g/dL (3.2-5.2); Albumin/Globulin Ratio 1.9 (1-3); Alcohol, S < 13 mg/dL (<13); Alkaline Phosphatase 48 U/L (35-149); Blood Urea Nitrogen 47 mg/dL (6-24); C Reactive Protein 99.52 mg/L (<8.01); CO2 Carbon Dioxide 26 mmol/L (22-32); Calcium 6.6 mg/dL (8.6-10.3); Chloride 81 mmol/L (101-111); Creatine Kinase 1439 U/L (10-223); Globulin 1.5 g/dL (2-4); Glucose 156 mg/dL (70-100); Magnesium 1.9 mg/dL (1.9-2.7); Total Protein 4.3 g/dL (6.4-8.9); eGFR CKD-EPI 23.4 (>60)
[2022-03-13 19:00] LABS: Anion Gap 9 mmol/L (2-11); Potassium 2.7 mmol/L (3.5-5.0); Sodium 116 mmol/L (135-145)
[2022-03-13 19:06] LABS: TSH Ultra Thyroid Stim Horm 0.82 mcIU/mL (0.34-5.60)
[2022-03-13] MEDS: KCL 10 MEQ/50 ML IVPREMIX 10 MEQ/50 ML BAG IV SCH ×2 (19:55→21:41)
[2022-03-13 20:37] LABS: High Sensitivity Troponin 1 Hr 14 pg/mL (<15)
[2022-03-13 20:50] LABS: Urine Appearance Cloudy; Urine Bilirubin Negative (Negative); Urine Blood 2+ (Negative); Urine Color Yellow; Urine Glucose Negative (Negative); Urine Ketones Negative (Negative); Urine Nitrite Negative (Negative); Urine Protein Negative (Negative); Urine Specific Gravity 1.009 (1.002-1.030); Urine Urobilinogen Negative (Negative)
[2022-03-13 20:59] LABS: Urine Chloride Concentration < 22 mmol/L; Urine Potassium Concentration 18.1 mmol/L; Urine Sodium Concentration 18 mmol/L
[2022-03-13] MEDS ORDERED: Potassium Chloride LIQUID 20 MEQ/15 ML LIQUID PO ONE (21:00)
[2022-03-13] MEDS ORDERED: Magnesium Sulfate IV 1GM/100ML 1 GM/100 ML BAG IV ONE (21:01)
[2022-03-13 21:11] LABS: Urine Benzodiazepine Screen None Detected (None Detect); Urine Cannabinoids Screen Presumptive Positive (None Detect); Urine Opiates Screen None Detected (None Detect)
[2022-03-13 21:14] LABS: Urine Bacteria Absent (Absent); Urine Red Blood Cell Absent (Absent); Urine White Blood Cell Trace(0-5/hpf) (Absent)
[2022-03-13 21:20] LABS: Potassium 2.9 mmol/L (3.5-5.0); eGFR CKD-EPI 26.4 (>60)
[2022-03-13 21:26] LABS: Calcium 6.3 mg/dL (8.6-10.3)
[2022-03-13] MEDS ORDERED: Magnesium Sulfate 2 gm BAG 2 GM/50 ML BAG IVPB ONE (21:27)
[2022-03-13] MEDS ORDERED: NS 0.9% 1000 ml BAG 1,000 ML IV SCH (21:30)
[2022-03-13] MEDS ORDERED: Dextrose 50% Syringe 50 ml 25 GM/50 ML SYRINGE IV PUSH PRN (21:33)
[2022-03-13 21:57] LABS: Urine Osmo 230 mOsm/kg (150-1150)
[2022-03-13 22:00] LABS: Osmolality Serum 259 mOsm/kg (275-295)
[2022-03-13] MEDS ORDERED: Potassium Chlor 20 meq TAB.ER PO ONE (23:00)
[2022-03-13] MEDS ORDERED: CALCIUM GLUCONATE 1GM/50ML NS 1 GM/50 ML BAG IV ONE (23:17)
[2022-03-13] MEDS ORDERED: Lactated Ringers 1000 ml BAG 1,000 ML IV SCH (23:45)
[2022-03-14] MEDS: Heparin 5000 UNITS/ML 1 mL VIAL SUBCUT SCH ×3 (00:22→21:22)
[2022-03-14 04:37] LABS: CO2 Carbon Dioxide 19 mmol/L (22-32); Calcium 7.1 mg/dL (8.6-10.3); Chloride 92 mmol/L (101-111); Sodium 124 mmol/L (135-145)
[2022-03-14 04:43] LABS: Blood Urea Nitrogen 36 mg/dL (6-24); Glucose 165 mg/dL (70-100); eGFR CKD-EPI 38.1 (>60)
[2022-03-14 04:45] LABS: Anion Gap 13 mmol/L (2-11)
[2022-03-14] MEDS ORDERED: D5W 500 ml BAG 500 ML IV SCH (05:00)
[2022-03-14 06:36] LABS: TSH Ultra Thyroid Stim Horm 0.87 mcIU/mL (0.34-5.60)
[2022-03-14] MEDS: Buprenorp/Nalox 2-0.5 mg SL TB SL SCH ×2 (08:09→22:28)
[2022-03-14] MEDS ORDERED: Buprenorp/Nalox 2-0.5 mg SL TB SL SCH (09:00)
[2022-03-14 10:11] LABS: Calcium 8.1 mg/dL (8.6-10.3); Potassium 3.9 mmol/L (3.5-5.0); eGFR CKD-EPI 51.6 (>60)
[2022-03-14 10:12] LABS: Magnesium 2.8 mg/dL (1.9-2.7); Phosphorus 1.6 mg/dL (2.5-5.0)
[2022-03-14] MEDS ORDERED: Desmopressin Acetate 4 MCG/ML 1 ML SDV SUBCUT ONE (10:30)
[2022-03-14] MEDS ORDERED: Potassium Phosphate IV 15 MMOLE in NS 0.9% 250 ml 250 ML IVPB ONE (11:05)
[2022-03-14 14:40] LABS: Potassium 3.8 mmol/L (3.5-5.0)
[2022-03-14] MEDS ORDERED: Acetaminophen IV 1 GM/100ML 1,000 MG/100 ML BAG IV PRN (14:46)
[2022-03-14 18:14] LABS: Calcium 7.5 mg/dL (8.6-10.3); eGFR CKD-EPI 72.1 (>60)
[2022-03-14] MEDS ORDERED: NS 0.9% 500 ml BAG 500 ML IV ONE (18:23)
[2022-03-14] MEDS: NS 0.9% 500 ml BAG 500 ML IV ONE ×2 (18:34→19:00)
[2022-03-14 21:48] LABS: Calcium 7.7 mg/dL (8.6-10.3); Potassium 3.6 mmol/L (3.5-5.0); eGFR CKD-EPI 86.1 (>60)
[2022-03-15 00:56] LABS: Calcium 7.4 mg/dL (8.6-10.3); Potassium 3.4 mmol/L (3.5-5.0); eGFR CKD-EPI 93.6 (>60)
[2022-03-15 06:12] LABS: ABS Basophils 0.1 10^3/ul (0-0.2); ABS Eosinophils 0.2 10^3/ul (0-0.6); ABS Lymphocytes 2.4 10^3/ul (1.0-4.8); ABS Monocytes 0.9 10^3/ul (0-0.8); ABS Neutrophils 6.4 10^3/ul (1.5-7.7); Eosinophil % 1.8 %; Hematocrit 37 % (35-47); Hemoglobin 12.3 g/dL (12.0-16.0); Lymphocyte % 23.8 %; Mean Corpuscular HGB Conc 34 g/dL (31-36); Mean Corpuscular Hemoglobin 28 pg (27-31); Mean Corpuscular Volume 84 fL (80-97); Mean Platelet Volume 6.5 fL (7.4-10.4); Platelet Count 379 10^3/uL (150-450); Red Blood Count 4.34 10^6 /uL (3.70-4.87); Red Cell Distribution Width 14 % (10-15)
[2022-03-15 06:39] LABS: eGFR CKD-EPI 84.8 (>60)
[2022-03-15 06:40] LABS: Phosphorus 2.5 mg/dL (2.5-5.0); Potassium 4.2 mmol/L (3.5-5.0)
[2022-03-15] MEDS: Buprenorp/Nalox 2-0.5 mg SL TB SL SCH ×2 (08:30→21:47)
[2022-03-15] MEDS: Heparin 5000 UNITS/ML 1 mL VIAL SUBCUT SCH ×2 (08:31→21:49)
[2022-03-15 09:29] LABS: Osmolality Serum 257 mOsm/kg (275-295)
[2022-03-15] MEDS ORDERED: NS 0.9% 1000 ml BAG 1,000 ML IV SCH (10:30)
[2022-03-15 11:05] LABS: Urine Osmo 390 mOsm/kg (150-1150)
[2022-03-15 15:36] LABS: Potassium 3.9 mmol/L (3.5-5.0)
[2022-03-15 15:42] LABS: eGFR CKD-EPI 77.4 (>60)
[2022-03-15] MEDS: NS 0.9% 1000 ml BAG 1,000 ML IV SCH (17:04)
[2022-03-15 20:56] LABS: CO2 Carbon Dioxide 25 mmol/L (22-32); Calcium 7.8 mg/dL (8.6-10.3); Chloride 91 mmol/L (101-111); Sodium 124 mmol/L (135-145)
[2022-03-15 21:02] LABS: Blood Urea Nitrogen 15 mg/dL (6-24); Glucose 97 mg/dL (70-100); eGFR CKD-EPI 86.1 (>60)
[2022-03-15 21:25] LABS: Anion Gap 8 mmol/L (2-11)
[2022-03-16] MEDS: NS 0.9% 1000 ml BAG 1,000 ML IV SCH (04:03)
[2022-03-16 07:00] LABS: Albumin 2.8 g/dL (3.2-5.2); Albumin/Globulin Ratio 1.9 (1-3); Calcium 7.2 mg/dL (8.6-10.3); Globulin 1.5 g/dL (2-4); Magnesium 1.5 mg/dL (1.9-2.7); Potassium 3.6 mmol/L (3.5-5.0); Total Bilirubin 0.3 mg/dL (0.2-1.0); Total Protein 4.3 g/dL (6.4-8.9)
[2022-03-16] MEDS: Buprenorp/Nalox 2-0.5 mg SL TB SL SCH ×2 (07:59→20:05)
[2022-03-16] MEDS: Heparin 5000 UNITS/ML 1 mL VIAL SUBCUT SCH ×2 (08:00→20:05)
[2022-03-16 19:50] LABS: Potassium 4.3 mmol/L (3.5-5.0); eGFR CKD-EPI 93.9 (>60)
[2022-03-17] MEDS: Buprenorp/Nalox 2-0.5 mg SL TB SL SCH (08:06)
[2022-03-17] MEDS: Heparin 5000 UNITS/ML 1 mL VIAL SUBCUT SCH (08:08)
[2022-03-17 09:59] LABS: Calcium 8.3 mg/dL (8.6-10.3); Magnesium 1.4 mg/dL (1.9-2.7); Potassium 4.1 mmol/L (3.5-5.0); eGFR CKD-EPI 90.5 (>60)
[2022-03-17] MEDS ORDERED: Senna TAB 8.6 mg TAB PO PRN (10:26)
[2022-03-17] MEDS ORDERED: Polyethylene Glycol 3350 17 GM PACKET PO PRN (10:26)
[2022-03-17] MEDS ORDERED: Magnesium Hydroxide LIQ 30 ML UDC PO SCH (11:00)
[2022-03-17] MEDS ORDERED: Magnesium Sulfate IV 3 GM in NS 0.9% 100 ml BAG 100 ML IVPB ONE (11:00)
[2022-03-17 11:58] VITALS: BP 113/61
== END 2022-03-17 16:30 | disposition home or self-care (01) | DRG 641 ==
LOC: ED 16:54 → SUATTDRO 20:57 → EDHOLD 20:57 → ICU 22:03 → MED 03-14 20:21
PROVIDERS: ADMIT Hospitalist; ATTEND Internal Medicine